=== PATIENT | female | born 1995 | race Caucasian/White ===

== ENCOUNTER 2016-06-25 19:52 | Emergency (ER) | payer OTHER ==
[~2016-06-25] VITALS: Wt 74.5 kg
[~2016-06-25 19:52] MED LIST: AMOX1TAB10 PO; CETI10CA PO; HYDR-906 PO; ONDA8TAB14 PO; PRENAT PO
[2016-06-25] MEDS ORDERED: AMO500 PO (20:58)
[2016-06-25] MEDS ORDERED: IBUP-1542 PO (20:58)
--- NOTE | 2016-08-24 16:20 | ERA ---
ER Documentation Chief Complaint Date/Time DATE: 08/24/16 TIME: 16:17 Chief Complaint sore throat HPI 20-year-old female complaining of pharyngitis. Also complains of a fever. Patient was given medications at this time to resolve the symptoms. No other complaints at this time or associated manifestations. ROS All systems reviewed and are negative except as per history of present illness. Medications Home Meds Active Scripts Ibuprofen* (Motrin*) 600 Mg Tab, 600 MG PO Q6H Y for PAIN AND OR ELEVATED TEMP, #30 TAB Prov:PA BROOKE NP 08/15/16 Ibuprofen* (Motrin*) 600 Mg Tab, 600 MG PO Q8, #30 TAB Prov:BEATA TERRY PA-C 06/25/16 Amoxicillin* (Amoxicillin*) 500 Mg Cap, 500 MG PO TID for 10 Days, CAP Prov:BEATA TERRY PA-C 06/25/16 Amoxicillin/Potassium Clav (Amox-Clav 875-125 mg Tablet) 875-125 mg Tab, 1 TAB PO BID for 7 Days, #14 TAB Prov:VASQUEZ MCDANIEL MD 12/13/15 Ondansetron (Ondansetron Odt) 8 Mg Tab.rapdis, 8 MG PO Q6H Y for NAUSEA AND/OR VOMITING, #10 TAB Prov:VASQUEZ MCDANIEL MD 12/13/15 Hydrocodone/Acetaminophen (Bruno 5-325 Tablet) 1 Each Tablet, 1 TAB PO Q6H Y for PAIN, #15 TAB Prov:VASQUEZ MCDANIEL MD 12/13/15 Cetirizine Hcl* (Zyrtec*) 10 Mg Capsule, 10 MG PO DAILY, #20 TAB.CHEW Prov:VASQUEZ MCDANIEL MD 09/19/15 Multivit/Min/Fol Ac/Iron/Pren* ( S*) 1 Tab Tab, 1 TAB PO DAILY, #120 TAB Prov:TARYN JENSEN NP 03/08/15 Allergies Allergies: Coded Allergies: No Known Drug Allergies (Verified Allergy, Unknown, 08/14/16) PMhx/Soc Medical and Surgical Hx: pt denies Medical Hx, pt denies Surgical Hx Hx Alcohol Use: No Hx Substance Use: No Hx Tobacco Use: No Smoking Status: Never smoker Physical Exam Physical Exam Const: Well-appearing overweight 20-year-old female Head: Atraumatic Eyes: Normal Conjunctiva ENT: Exudates visualized in the oropharynx bilaterally. Normal External Ears , Nose and Mouth. Neck: Anterior cervical lymphadenopathy. Full range of motion..~ No meningismus. Resp: Clear to auscultation bilaterally Cardio: Regular rate and rhythm, no murmurs Abd: Soft, non tender, non distended. Normal bowel sounds Skin: No petechiae or rashes Back: No midline or flank tenderness Ext: No cyanosis, or edema Neur: Awake and alert Psych: Normal Mood and Affect Procedures/MDM Patient is a 4 out of 5 new Cent[facility] criteria. We will go ahead and discharge the patient was with antibiotics for strep pharyngitis. Will be discharged with instructions and return precautions. Departure Diagnosis: Primary Impression: Strep pharyngitis Condition: Stable Patient Instructions: Pharyngitis, Strep (Presumed) Additional Instructions: Return to clinic if rash appears or if symptoms worsen BEATA TERRY PA-C August 24, 2016 16:20
== END 2016-06-25 21:28 | disposition home or self-care (01) ==
LOC: FTE 19:52
DX: J02.9 Acute pharyngitis, unspecified (principal)
CPT/HCPCS: 99283

== ENCOUNTER 2016-08-14 22:24 | Emergency (ER) | payer MEDICAID, OTHER ==
[~2016-08-14] VITALS: Ht 160 cm; Wt 77.5 kg
[~2016-08-14 22:24] MED LIST changes: +AMO500 PO; +IBUP-1542 PO
[2016-08-14 22:51] VITALS: Ht 160 cm; Wt 77.5 kg
[2016-08-15] MEDS ORDERED: IBUP-1542 PO (16:08)
== END 2016-08-15 04:07 | disposition left against medical advice (07) ==
LOC: FTE 22:24
DX: Z53.21 Procedure and treatment not carried out due to patient leaving prior to being seen by health care provider (principal)

== ENCOUNTER 2016-08-15 11:50 | Emergency (ER) | payer OTHER ==
[~2016-08-15] VITALS: Wt 78.0 kg
[2016-08-15] MEDS ORDERED: IBUPROFEN 600 MG TAB PO ONE (14:30)
--- NOTE | 2016-08-15 15:13 | RADRPT ---
PROCEDURE: Retroperitoneal US. CLINICAL INDICATION: Flank pain TECHNIQUE: Multiple sonographic images of the kidneys and retroperitoneum were obtained. The imag es were reviewed on a PACS workstation. COMPARISON: No prior studies are available for comparison. FINDINGS: The kidneys are normal in size, contour, cortical thickness and cortical echogenicity. The right kidney measures 11.5 cm. The left kidney measures 11.1 cm. No kidney stones are visualized. There is no evidence for hydronephrosis. The urinary bladder is decompressed and not well seen. RPTAT: AA IMPRESSION: Unremarkable retroperitoneal ultrasound. .Coleman De Jesus MD, Date Time Electronically viewed and signed by .Coleman De Jesus MD, MD on 08/15/2016 15:13 .S/
[2016-08-15 15:35] LABS: ADD UMIC YES; URINE BILIRUBIN (Dip) NEGATIVE (NEGATIVE); URINE BLOOD (Dip) TRACE (NEGATIVE); URINE COLOR LT. YELLOW (YELLOW); URINE GLUCOSE (Dip) NEGATIVE (NEGATIVE); URINE KETONES (Dip) NEGATIVE (NEGATIVE); URINE LEUKOCYTE ESTERASE (Dip) NEGATIVE (NEGATIVE); URINE NITRITE (Dip) NEGATIVE (NEGATIVE); URINE TOTAL PROTEIN (Dip) NEGATIVE (NEGATIVE); URINE UROBILINOGEN (Dip) 0.2 E.U./dL (0.1-1.0)
[2016-08-15 15:49] LABS: SQUAMOUS EPITHELIAL CELL,UR FEW; URINE RBCS 0-2 /HPF (0)
[2016-08-15] MEDS ORDERED: IBUP-1542 PO (16:08)
[2016-08-15 16:19] VITALS: BP 118/70; PULSE 66; RESP 20; TEMP 98.3
--- NOTE | 2016-08-15 17:49 | ERD ---
ER Documentation Chief Complaint Date/Time DATE: 08/15/16 TIME: 17:43 Chief Complaint RIGHT SIDE NON TRAUMATIC BACK PAIN FOR 3 DAYS. ADARSH. NO VOMITING HPI 20-year-old male complaining of right flank pain 3 days. Patient stated the pain has a sudden onset is sharp and constant. She took Tylenol which help ease the pain for short period. Movement seemed to make pain worse. The pain does not radiate. Denies fever or chills. Denies dysuria. Denies fall, heavy lifting, or injuries. Denies saddle paresthesia. Denies bowel or bladder dysfunctions. ROS All systems reviewed and are negative except as per history of present illness. Medications Home Meds Active Scripts Ibuprofen* (Motrin*) 600 Mg Tab, 600 MG PO Q6H Y for PAIN AND OR ELEVATED TEMP, #30 TAB Prov:PA BROOKE NP 08/15/16 Ibuprofen* (Motrin*) 600 Mg Tab, 600 MG PO Q8, #30 TAB Prov:BEATA TERRY PA-C 06/25/16 Amoxicillin* (Amoxicillin*) 500 Mg Cap, 500 MG PO TID for 10 Days, CAP Prov:BEATA TERRY PA-C 06/25/16 Amoxicillin/Potassium Clav (Amox-Clav 875-125 mg Tablet) 875-125 mg Tab, 1 TAB PO BID for 7 Days, #14 TAB Prov:VASQUEZ MCDANIEL MD 12/13/15 Ondansetron (Ondansetron Odt) 8 Mg Tab.rapdis, 8 MG PO Q6H Y for NAUSEA AND/OR VOMITING, #10 TAB Prov:VAQSUEZ MCDANIEL MD 12/13/15 Hydrocodone/Acetaminophen ([place]iells 5-325 Tablet) 1 Each Tablet, 1 TAB PO Q6H Y for PAIN, #15 TAB Prov:VASQUEZ MCDANIEL MD 12/13/15 Cetirizine Hcl* (Zyrtec*) 10 Mg Capsule, 10 MG PO DAILY, #20 TAB.CHEW Prov:VASQUEZ MCDANIEL MD 09/19/15 Multivit/Min/Fol Ac/Iron/Pren* ( S*) 1 Tab Tab, 1 TAB PO DAILY, #120 TAB Prov:TARYN JENSEN NP 03/08/15 Allergies Allergies: Coded Allergies: No Known Drug Allergies (Verified Allergy, Unknown, 08/14/16) PMhx/Soc Hx Miscellaneous Medical Probl: Yes (hx gallstones, ) Hx Alcohol Use: No Hx Substance Use: No Hx Tobacco Use: No Physical Exam Vitals Vital Signs Date Time Temp Pulse Resp B/P Pulse Ox O2 Delivery O2 Flow Rate FiO2 08/15/16 16:19 98.3 66 20 118/70 97 Room Air 08/15/16 11:54 97.4 75 20 112/75 97 Physical Exam General: Well-developed, well-nourished, conscious and coherent, in no distress Skin: Warm and dry without rash, good texture and turgor Head: Normocephalic without evidence of trauma Eyes: Sclera and conjunctivae normal; pupils equal, round, and reactive to light; extraocular movements are intact Neck: Supple without meningismus or adenopathy. Carotids are equal. Trachea midline. No bruits or JVD Chest: Normal AP diameter. Good expansion without retractions. Nontender. Lungs are clear to auscultate bilaterally with good tidal volume Heart: Regular rate and rhythm. No murmur, rub, or gallops heard Abdomen: Soft and nontender without masses, guarding, or rebound. Bowel sounds are active. No hepatosplenomegaly Back: No midline spine tenderness, right CVA tenderness noted. Pelvis: Nontender to palpation and stable to compression Extremities: Full range of motion. Good strength bilaterally. No clubbing, cyanosis, or edema. Peripheral pulses are intact. Sensation intact Neuro: Alert and oriented 4, GCS 15. Cranial nerves grossly intact. Motor and sensory exams nonfocal. Moves all extremities. Speech clear. Gait normal. No saddle paresthesia. Results 24 hrs Laboratory Tests Test 08/15/16 14:27 Urine Color LT. YELLOW Urine Clarity CLEAR Urine pH 6.0 Urine Specific [place] 1.025 Urine Ketones NEGATIVE Urine Nitrite NEGATIVE Urine Bilirubin NEGATIVE Urine Urobilinogen 0.2 E.U./dL Urine Leukocyte Esterase NEGATIVE Urine Microscopic RBC 0-2/HPF Urine Microscopic WBC 0-2/HPF Urine Squamous Epithelial Cells FEW Urine Hemoglobin TRACE Urine Glucose NEGATIVE% Urine Total Protein NEGATIVE Current Medications Medications (Trade) Dose Ordered Sig/Sherice Route PRN Reason Start Time Stop Time Status Last Admin Dose Admin Ibuprofen (Motrin) 600 mg ONCE ONCE PO 08/15/16 14:30 08/15/16 14:31 DC 08/15/16 14:16 PROCEDURE: Retroperitoneal US. CLINICAL INDICATION: Flank pain TECHNIQUE: Multiple sonographic images of the kidneys and retroperitoneum were obtained. The images were reviewed on a PACS workstation. COMPARISON: No prior studies are available for comparison. FINDINGS: The kidneys are normal in size, contour, cortical thickness and cortical echogenicity. The right kidney measures 11.5 cm. The left kidney measures 11.1 cm. No kidney stones are visualized. There is no evidence for hydronephrosis. The urinary bladder is decompressed and not well seen. RPTAT: AA IMPRESSION: Unremarkable retroperitoneal ultrasound. .Coleman De Jesus MD, MD Date Time Electronically viewed and signed by .Coleman De Jesus MD, on 08/15/2016 15: 13 .S/ CC: PA BROOKE [employer] Procedures/MDM Well-appearing 20-year-old female presented ED with right flank pain 3 days. Ibuprofen given to the patient in the ED for pain. Patient reports improvement of pain after ibuprofen. UA showed trace hemoglobin, otherwise negative. Patient does not have a UTI or pyelonephritis, however I suspect urolithiasis. Renal ultrasound is negative for hydronephrosis. I doubt spinal fracture, subluxation, disc herniation, spinal epidural abscess, or cauda equina syndrome. Patient appears well, stable for discharge and outpatient management. Medical decision making shared with patient and family. Education provided to patient and family. Patient and family expressed understanding of the plan. Medications on discharge: Ibuprofen. Follow-up: Primary care provider in 2-3 days or return to ED if worse. Departure Diagnosis: Primary Impression: Flank pain Condition: Good Patient Instructions: Kidney Stone W/ Colic Referrals: COMMUNITY CLINICS YOU HAVE RECEIVED A MEDICAL SCREENING EXAM AND THE RESULTS INDICATE THAT YOU DO NOT HAVE A CONDITION THAT REQUIRES URGENT TREATMENT IN THE EMERGENCY DEPARTMENT. FURTHER EVALUATION AND TREATMENT OF YOUR CONDITION CAN WAIT UNTIL YOU ARE SEEN IN YOUR DOCTORS OFFICE WITHIN THE NEXT 1-2 DAYS. IT IS YOUR RESPONSIBILITY TO MAKE AN APPOINTMENT FOR FOLOW-UP CARE. IF YOU HAVE A PRIMARY DOCTOR --you should call your primary doctor and schedule an appointment IF YOU DO NOT HAVE A PRIMARY DOCTOR YOU CAN CALL OUR PHYSICIAN REFERRAL HOTLINE AT IF YOU CAN NOT AFFORD TO SEE A PHYSICIAN YOU CAN CHOSE FROM THE FOLLOWING [facility] [address] [facility]. [facility] [address] [facility] [facility] [address] [facility] [address] [facility]. [facility] [address] [facility]. [facility] [address] Additional Instructions: Call your primary care doctor TOMORROW for an appointment during the next 2-3 days.See the doctor sooner or return here if your condition worsens before your appointment time. PA BROOKE NP August 15, 2016 17:49
== END 2016-08-15 16:20 | disposition home or self-care (01) ==
LOC: FTE 11:50
DX: R10.9 Unspecified abdominal pain (principal)
CPT/HCPCS: 76775; 81001; Z7502; Z7610; 81003

== ENCOUNTER 2016-08-27 19:58 | Inpatient (IN) | payer OTHER ==
[~2016-08-27] VITALS: Ht 160 cm; Wt 77.5 kg
[2016-08-27] MEDS ORDERED: ONDANSETRON (ODT) 4 MG TAB ODT STA (22:19)
[2016-08-27] MEDS ORDERED: IBUPROFEN 600 MG TAB PO ONE (22:30)
[2016-08-27 22:38] LABS: URINE BLOOD (Dip) POC Negative (NEGATIVE)
[2016-08-27 23:04] LABS: ADD SCAN DIFF NO
[2016-08-27 23:07] LABS: BASOPHILS % 0.2 % (0.0-2.0); EOSINOPHILS % 0.1 % (0.0-7.0); HEMATOCRIT 40.7 % (37.0-47.0); HEMOGLOBIN 13.5 g/dl (12.0-16.0); LYMPHOCYTES # 2.8 10^3/ul (0.8-2.9); LYMPHOCYTES % 14.5 % (15.0-51.0); MEAN CORPUSCULAR HEMOGLOBIN 27.9 pg (29.0-33.0); MEAN CORPUSCULAR HGB CONC 33.2 g/dl (32.0-37.0); MEAN CORPUSCULAR VOLUME 84.1 fl (82.0-101.0); MEAN PLATELET VOLUME 10.2 fl (7.4-10.4); MONOCYTE # 0.8 10^3/ul (0.3-0.9); NEUTROPHIL # 15.6 10^3/ul (1.6-7.5); NEUTROPHILS % 80.9 % (39.0-77.0); PLATELET COUNT 309 10^3/UL (140-415); RED BLOOD COUNT 4.84 10^6/ul (4.20-5.40); RED CELL DISTRIBUTION WIDTH 13.2 % (11.5-14.5); WHITE BLOOD COUNT 19.2 10^3/ul (4.8-10.8)
[2016-08-27 23:21] LABS: ALBUMIN 4.8 g/dl (3.3-4.9)
[2016-08-27 23:22] LABS: POTASSIUM 3.8 mmol/L (3.5-5.1)
[2016-08-27 23:24] LABS: ALBUMIN/GLOBULIN RATIO 1.26; BILIRUBIN,INDIRECT 0.5 mg/dl (0-1.1); BILIRUBIN,TOTAL 0.5 mg/dl (0.2-1.3); CREATININE 0.49 mg/dl (0.44-1.00); TOTAL PROTEIN 8.6 g/dl (6.1-8.1)
[2016-08-27 23:25] LABS: CALCIUM 9.5 mg/dl (8.4-10.2)
--- NOTE | 2016-08-27 23:28 | RADRPT ---
PROCEDURE: US Abdomen (right upper quadrant). CLINICAL INDICATION: Pain. TECHNIQUE: Multiple real-time longitudinal and transverse images of the right upper quadrant of th e abdomen were acquired utilizing a curved array transducer. Images were reviewed on a high-resoluti on PACS workstation. COMPARISON: 12/13/2015 FINDINGS: The liver is normal in size and echogencity without focal mass. Multiple gallstones are noted withi n the gallbladder. There is no pericholecystic fluid or gallbladder wall thickening. There is no s onographic Mcwilliams's sign. No intra or extrahepatic biliary dilatation is seen. The common bile elaine t measures 4.5 mm in maximal dimension. The pancreas is unremarkable. No free fluid is identified. The right kidney measures 10.8 cm in length. Right kidney is normal in size and echogenicity withou t hydronephrosis, mass or calculus. There is no perinephric fluid collection. IMPRESSION: 1. Cholelithiasis. 2. No biliary ductal dilation or other signs of cholecystitis. RPTAT: HMVK .Berlin Mehta MD, MD Date Time Electronically viewed and signed by .Berlin Mehta MD, MD on 08/27/2016 23:28 .K/
[2016-08-28] MEDS ORDERED: morphine 4 MG/ML VIAL IV STA (00:26)
--- NOTE | 2016-08-28 00:35 | ERA ---
ER Documentation Chief Complaint Date/Time DATE: 08/28/16 TIME: 00:27 Chief Complaint Epigastric with N/V and diarrhea HPI This is a 20-year-old female with past medical history for cholelithiasis and nephrolithiasis presenting to emergency department for epigastric and right upper quadrant abdominal pain with nausea, vomiting and diarrhea 2 days. Patient has had 2 episodes of nonbloody nonbilious emesis yesterday with multiple episodes of loose stool today. No black, tarry or bloody stools. Patient states pain does not radiate. Patient states she was diagnosed with gallstones 1 year ago. Patient states pain feels similar but much worse today. No fevers or chills. No chest pain, shortness of breath or difficulty breathing. No back or flank pain. No dysuria, hematuria, urinary frequency or urinary urgency. ROS All systems reviewed and are negative except as per history of present illness. Medications Home Meds Active Scripts Ibuprofen* (Motrin*) 600 Mg Tab, 600 MG PO Q6H Y for PAIN AND OR ELEVATED TEMP, #30 TAB Prov:PA BROOKE NP 08/15/16 Ibuprofen* (Motrin*) 600 Mg Tab, 600 MG PO Q8, #30 TAB Prov:BEATA TERRY PA-C 06/25/16 Amoxicillin* (Amoxicillin*) 500 Mg Cap, 500 MG PO TID for 10 Days, CAP Prov:BEATA TERRY PA-C 06/25/16 Amoxicillin/Potassium Clav (Amox-Clav 875-125 mg Tablet) 875-125 mg Tab, 1 TAB PO BID for 7 Days, #14 TAB Prov:VASQUEZ MCDANIEL MD 12/13/15 Ondansetron (Ondansetron Odt) 8 Mg Tab.rapdis, 8 MG PO Q6H Y for NAUSEA AND/OR VOMITING, #10 TAB Prov:VASQUEZ MCDANIEL MD 12/13/15 Hydrocodone/Acetaminophen ([place] 5-325 Tablet) 1 Each Tablet, 1 TAB PO Q6H Y for PAIN, #15 TAB Prov:VASQUEZ MCDANIEL MD 12/13/15 Cetirizine Hcl* (Zyrtec*) 10 Mg Capsule, 10 MG PO DAILY, #20 TAB.CHEW Prov:VASQUEZ MCDANIEL MD 09/19/15 Multivit/Min/Fol Ac/Iron/Pren* ( S*) 1 Tab Tab, 1 TAB PO DAILY, #120 TAB Prov:LUIS ETARYN LACKEY NP 03/08/15 Allergies Allergies: Coded Allergies: No Known Drug Allergies (Verified Allergy, Unknown, 08/14/16) PMhx/Soc Cholelithiasis Nephrolithiasis History of Surgery: No Anesthesia Reaction: No Hx Neurological Disorder: No Hx Respiratory Disorders: No Hx Cardiac Disorders: No Hx Psychiatric Problems: No Hx Miscellaneous Medical Probl: Yes (hx gallstones, HX OF KIDNEY STONES.) Hx Alcohol Use: No Hx Substance Use: No Hx Tobacco Use: No Smoking Status: Never smoker Physical Exam Vitals Vital Signs Date Time Temp Pulse Resp B/P Pulse Ox O2 Delivery O2 Flow Rate FiO2 08/27/16 20:11 98.6 86 20 126/78 100 Physical Exam Const: No acute distress, alert Head: Atraumatic Eyes: Normal Conjunctiva ENT: Normal External Ears, Nose and Mouth. Neck: Full range of motion..~ No meningismus. Resp: Clear to auscultation bilaterally Cardio: Regular rate and rhythm, no murmurs Abd: Soft, non distended. Normal bowel sounds, negative Mcwilliams sign. Tenderness to palpation of epigastric region. Negative McBurney's point tenderness, negative rebound tenderness no guarding or masses noted Skin: No petechiae or rashes Back: No midline or flank tenderness Ext: No cyanosis, or edema Neur: Awake and alert Psych: Normal Mood and Affect Result Diagram: 08/27/16224508/27/162245 Results 24 hrs Laboratory Tests Test 08/27/16 22:41 08/27/16 22:46 Bedside Urine pH (LAB) 5.5 Bedside Urine Protein (LAB) Negative Bedside Urine Glucose (UA) Negative Bedside Urine Ketones (LAB) Negative Bedside Urine Blood Negative Bedside Urine Nitrite (LAB) Negative Bedside Urine Leukocyte Esterase (L Negative White Blood Count 19.210^3/ul Red Blood Count 4.8410^6/ul Hemoglobin 13.5g/dl Hematocrit 40.7% Mean Corpuscular Volume 84.1fl Mean Corpuscular Hemoglobin 27.9pg Mean Corpuscular Hemoglobin Concent 33.2g/dl Red Cell Distribution Width 13.2% Platelet Count 65069^3/UL Mean Platelet Volume 10.2fl Neutrophils % 80.9% Lymphocytes % 14.5% Monocytes % 4.0% Eosinophils % 0.1% Basophils % 0.2% Nucleated Red Blood Cells % 0.0/100WBC Neutrophils # 15.610^3/ul Lymphocytes # 2.810^3/ul Monocytes # 0.810^3/ul Eosinophils # 0.010^3/ul Basophils # 0.010^3/ul Nucleated Red Blood Cells # 0.010^3/ul Sodium Level 141mmol/L Potassium Level 3.8mmol/L Chloride Level 101mmol/L Carbon Dioxide Level 27mmol/L Anion Gap 17 Blood Urea Nitrogen 11mg/dl Creatinine 0.49mg/dl Glucose Level 103mg/dl Calcium Level 9.5mg/dl Total Bilirubin 0.5mg/dl Direct Bilirubin 0.00mg/dl Indirect Bilirubin 0.5mg/dl Aspartate Amino Transf (AST/SGOT) 260IU/L Alanine Aminotransferase (ALT/SGPT) 131IU/L Alkaline Phosphatase 122IU/L Total Protein 8.6g/dl Albumin 4.8g/dl Globulin 3.80g/dl Albumin/Globulin Ratio 1.26 Lipase 18U/L Current Medications Medications (Trade) Dose Ordered Sig/Sherice Route PRN Reason Start Time Stop Time Status Last Admin Dose Admin Ibuprofen (Motrin) 600 mg ONCE ONCE PO 08/27/16 22:30 08/27/16 22:31 DC 08/27/16 22:40 Ondansetron HCl (Zofran Odt) 4 mg ONCE STAT ODT 08/27/16 22:19 08/27/16 22:22 DC 08/27/16 22:40 Morphine Sulfate 4 mg 4 mg ONCE STAT IV 08/28/16 00:26 08/28/16 00:27 DC Dextrose/Sodium Chloride (D5-1/2ns) 1,000 ml @ 120 mls/hr Q8H20M IV 08/28/16 01:12 UNV IV Flush (NS 3 ml) 3 ml PER PROTOCOL IV 08/28/16 01:30 UNV Ondansetron HCl (Zofran Inj) 4 mg Q6H PRN IV NAUSEA AND/OR VOMITING 08/28/16 01:30 UNV Morphine Sulfate 4 mg 4 mg Q4H PRN IV PAIN 08/28/16 01:30 UNV Ampicillin Sodium/ Sulbactam Sodium (Unasyn 3gm/NS (Pmx)) 100 ml @ 100 mls/hr Q6H IVPB 08/28/16 01:30 UNV Procedures/MDM Patient: TERRIE KOVACS : 1995 Age: 20 Sex: F MR #: [id number] DOS: 08/27/16 2219 Ordering MD: EDWIN MONTEIRO NP Location: [facility] Room/Bed: PROCEDURE: US Abdomen (right upper quadrant). CLINICAL INDICATION: Pain. TECHNIQUE: Multiple real-time longitudinal and transverse images of the right upper quadrant of the abdomen were acquired utilizing a curved array transducer. Images were reviewed on a high-resolution PACS workstation. COMPARISON: 12/13/2015 FINDINGS: The liver is normal in size and echogencity without focal mass. Multiple gallstones are noted within the gallbladder. There is no pericholecystic fluid or gallbladder wall thickening. There is no sonographic Mcwilliams's sign. No intra or extrahepatic biliary dilatation is seen. The common bile duct measures 4.5 mm in maximal dimension. The pancreas is unremarkable. No free fluid is identified. The right kidney measures 10.8 cm in length. Right kidney is normal in size and echogenicity without hydronephrosis, mass or calculus. There is no perinephric fluid collection. IMPRESSION: 1. Cholelithiasis. 2. No biliary ductal dilation or other signs of cholecystitis. MDM; 20-year-old female presents emergency department for epigastric and right upper quadrant abdominal pain with nausea, vomiting and diarrhea 2 days. No active vomiting or diarrhea while in the ED. Patient has history of gallstones. Ultrasound reviewed by radiologist as cholelithiasis. No biliary ductal dilation or other signs of cholecystitis. Patient given ibuprofen and Zofran while in the ED. Upon reassessment, patient states pain is still 7-8/10 to epigastric and right upper quadrant area. Labs show elevated WBC, AST and ALT. WBC 19.2, AST 260, ALT 131, alk phosphatase 122. Consulted Dr. Lizama and we agree that patient is appropriate for admission to hospital and higher level of care. IV access obtained and patient given morphine 4mg IV push. Patient will be transferred to ER1 for eventual admission to the hospital. Differential diagnosis includes but not limited to acute cholangitis, acute cholecystitis, choledocholithiasis, hepatitis or pancreatitis. Departure Diagnosis: Primary Impression: Abdominal pain Qualified Code: R10.13 - Epigastric pain Additional Impression: Cholelithiasis Condition: EDWIN Middleton NP August 28, 2016 00:35
[2016-08-28] MEDS ORDERED: NACL 0.9% 3 ML SYG IV SCH (01:30)
[2016-08-28] MEDS ORDERED: ONDANSETRON 4 MG INJ IV PRN (01:30)
[2016-08-28] MEDS ORDERED: morphine 2 MG INJ IV PRN (01:30)
[2016-08-28] MEDS: DEXTROSE 5%-0.45% NACL 1,000 ML IV SCH ×4 (02:32→22:31)
[2016-08-28 02:40] VITALS: TEMP 99
[2016-08-28 03:10] VITALS: Ht 160 cm; Wt 77.5 kg
[2016-08-28 03:38] VITALS: BP 108/77; RESP 18
[2016-08-28 05:04] LABS: ADD SCAN DIFF NO
[2016-08-28 05:08] LABS: BASOPHILS % 0.2 % (0.0-2.0); EOSINOPHILS % 0.4 % (0.0-7.0); HEMATOCRIT 37.5 % (37.0-47.0); HEMOGLOBIN 12.5 g/dl (12.0-16.0); LYMPHOCYTES # 3.6 10^3/ul (0.8-2.9); LYMPHOCYTES % 32.9 % (15.0-51.0); MEAN CORPUSCULAR HGB CONC 33.3 g/dl (32.0-37.0); MEAN CORPUSCULAR VOLUME 83.9 fl (82.0-101.0); MEAN PLATELET VOLUME 10.4 fl (7.4-10.4); MONOCYTE # 0.7 10^3/ul (0.3-0.9); NEUTROPHIL # 6.5 10^3/ul (1.6-7.5); NEUTROPHILS % 60.3 % (39.0-77.0); PLATELET COUNT 275 10^3/UL (140-415); RED BLOOD COUNT 4.47 10^6/ul (4.20-5.40); RED CELL DISTRIBUTION WIDTH 13.2 % (11.5-14.5); WHITE BLOOD COUNT 10.8 10^3/ul (4.8-10.8)
[2016-08-28] MEDS: AMPICILLIN/SULB 3 GM/NS (PMX) 100 ML IVPB SCH ×4 (05:25→23:55)
[2016-08-28 05:28] LABS: ALBUMIN/GLOBULIN RATIO 1.17; BILIRUBIN,INDIRECT 0.9 mg/dl (0-1.1); BILIRUBIN,TOTAL 0.9 mg/dl (0.2-1.3); CREATININE 0.47 mg/dl (0.44-1.00); MAGNESIUM 1.9 mg/dl (1.7-2.5); PHOSPHORUS 3.5 mg/dl (2.5-4.9); POTASSIUM 3.7 mmol/L (3.5-5.1); TOTAL PROTEIN 7.4 g/dl (6.1-8.1)
--- NOTE | 2016-08-28 06:38 | HP ---
DATE OF ADMISSION: 08/28/2016 TIME SEEN: 3 a.m. CHIEF COMPLAINT: Abdominal pain, nausea, vomiting and diarrhea. HISTORY OF PRESENT ILLNESS: The patient is a 20-year-old female with a history of cholelithiasis a nd kidney stones who presented to the emergency department with the above stated chief complaint. H er symptoms have been going on for almost 3 days now. Her abdominal pain is diffuse, but mainly loc ated in the right upper quadrant and epigastric area with associated vomiting, which was nonbilious, nonbloody. Also, reported diarrhea for 2 days described as nonwatery with loose stool. She denied dark stool or bright red blood per rectum. She presented to the ER, vitals were stable. Labs show WBC of 19,000 with abnormal liver enzymes wi th a AST of 260, ALT 131, alkaline phosphatase 122. Her lipase was normal at 18. Right upper quadr ant ultrasound shows cholelithiasis with no biliary ductal dilatation or other signs of cholecystiti s. She was given pain medication and Zofran and admitted for further evaluation. Dr. Benoit, the o n-call surgeon is made aware by the ER physician. REVIEW OF SYSTEMS: A 12-point review of systems was performed and negative except as mentioned in H PI. PAST MEDICAL HISTORY: Cholelithiasis diagnosed over a year ago. PAST SURGICAL HISTORY: Denies. SOCIAL HISTORY: Denied a history of tobacco, alcohol or illicit drug use. ALLERGIES: NO KNOWN DRUG ALLERGIES. HOME MEDICATIONS: 1. Ibuprofen. 2. Multivitamin. PHYSICAL EXAMINATION: VITAL SIGNS: Stable. GENERAL: No acute distress. She is answering questions appropriately and able to speak in full sen tences. HEENT: No obvious head deformity. Pupils are reactive to light. Extraocular muscles intact. CARDIOVASCULAR: Regular rate and rhythm with no extra sounds. LUNGS: Clear. ABDOMEN: Soft. There is tenderness diffusely, but mainly in the epigastric and right upper quadran t area. There was no guarding, no rigidity, no rebound tenderness. EXTREMITIES: No edema. NEUROLOGIC: No focal deficit. LABORATORY: Pertinent positives as mentioned in the HPI. IMAGING: Right upper quadrant ultrasound shows cholelithiasis. IMPRESSION: 1. Probable choledocholithiasis with probable underlying cholecystitis. 2. Abdominal pain, secondary to above. 3. Abnormal liver enzymes, likely secondary to choledocholithiasis. PLAN: We will keep n.p.o. with IV fluid. We will provide pain medication and antiemetics as needed . She will be placed on antibiotic. We will obtain MRCP for further evaluation. We will place a G I consult. She is currently awaiting surgical evaluation. If her diarrhea recurs we will send stoo l for culture as well as C. diff. Further workup and management will be per clinical course. Dictated By: ANSELMO FIELDS/REX Conf#: [id number] DID#: [id number]
[2016-08-28 10:55] VITALS: BP 104/67; RESP 20
--- NOTE | 2016-08-28 15:29 | CONS ---
[facility] INITIAL INPATIENT CONSULTATION NOTE DATE OF CONSULTATION: 08/28/2016 PLACE OF SERVICE: [facility], 4th floor. ASSESSMENT AND PLAN: A very pleasant 20-year-old young lady with essentially only comorbid issue of body mass index 30.3 as well as history of cholelithiasis and renal stones, recently status post-delivery of her child about 2 years ago, presenting with a clinical picture that could be consistent with biliary colic, although more likely due to viral gastroenteritis given the 3 day history as well as the diarrhea. The patient's MRCP is still pending and there are some indications of elevation in transaminases. No evidence of pancreatitis. She can certainly benefit from in-house care as well as careful evaluation and if her workup shows cholecystic duct she may be benefited by laparoscopic cholecystectomy. Alternatively, this could be a viral infection which would get better with supportive care. She may still need an elective laparoscopic cholecystectomy in the near future and will certainly make that determination as further information becomes available. I explained all of this to the patient and her family and answered all their questions to the best of my ability. I believe that they understood and wished to proceed. With above assessment, I have recommend the followin. Follow up on MRCP results. 2. Consideration for HIDA scan. 3. Treat symptoms. 4. Intravenous fluids. 5. Check labs in a.m. 6. Possible laparoscopic cholecystectomy if the above workup focuses the diagnosis on the gallbladder. Thank you again for allowing us to participate in the care of this very pleasant lady and her wonderful family. If there are any questions, please feel free to contact me at [phone]. UPDATED CLINICAL SUMMARY: The patient is a very pleasant 20-year-old young lady with a few comorbidities including BMI of 30.3, presenting to the emergency department and being admitted at [facility] on 08/28 with abdominal pain, possibly due to cholelithiasis versus viral gastroenteritis. COMORBIDITIES: 1. BMI of 30.3. 2. Known history of cholelithiasis discovered during . 3. History of kidney stones. 4. G1, P1, A0 status with her child approximately 2 years old. DATE OF ADMISSION: 08/28/2016 HISTORY OF PRESENT ILLNESS: The patient is a very pleasant 20-year-old young lady with above-mentioned comorbidities, whom we were kindly asked to consult regarding management of possible biliary disease. She reported having abdominal symptoms for the last 3 days associated with nausea and some vomiting. The pain is diffuse, but somewhat localized to the upper quadrants and epigastric area. She does not report any blood in her emesis. She did have diarrhea for 2 days, described as non-watery with loose stool. No blood in the stool or urine. She remembers having similar attack while she was at which time she was told she has cholelithiasis. She has never been evaluated for a cholecystectomy before. Note that the patient's initial white blood cell count of 19,000 quickly normalized after a few hours of resuscitation. She also has elevated AST and ALT and alkaline phosphatase which was marginal at 122. Lipase was 18. Her workup included images that were from gallbladder ultrasound showing cholelithiasis but no biliary ductal dilatation or other signs of cholecystitis. An MRCP is pending. No other major complaints during my visit. ALLERGIES: NO KNOWN DRUG ALLERGIES. HOME MEDICATIONS: 1. Multivitamins. 2. Ondansetron. 3. Motrin. 4. Clearwater. 5. Zyrtec. 6. Amoxicillin and clavulanic acid. SOCIAL HISTORY: The patient lives with her family and does not report any smoking, drinking, or intravenous drug use. FAMILY HISTORY: No mention of major medical, surgical or oncologic problems in the family. REVIEW OF SYSTEMS: Other than the above-mentioned, there are no other pertinent positives or pertinent negatives in a complete 14-point review of systems. PHYSICAL EXAMINATION: GENERAL: The patient appears to be a very pleasant lady of descent, appearing stated age, lying in bed comfortably and in no acute distress. BMI is 30.3. VITAL SIGNS: Include temperature 98.4, blood pressure 104/67, pulse 72, respiratory rate 20, pulse oximetry 98% on room air. HEENT: Normocephalic and atraumatic. Extraocular muscles and hearing are grossly intact bilaterally and symmetrically. Sclerae are nonicteric. Oral cavity is clear; oral mucosa appeared to be pink and moist. Dentition: good. NECK: Supple. There is no lymphadenopathy or JVD. There is no submental, submandibular or supraclavicular lymphadenopathy. CHEST: Rises symmetrically with each breath; patient is breathing comfortably. There are no audible wheezes, rales or rhonchi on the gross exam. HEART: Pulse is regular and palpable on the right wrist. Capillary refill was normal. Carotid pulses are palpable bilaterally and symmetrically in the neck. EXTREMITIES: Lower extremities contain no pitting edema around the ankles bilaterally and symmetrically. ABDOMEN: Abdomen is soft, nontender and nondistended. There are no peritoneal signs or guarding. No evidence of ascites, organomegaly, caput medusae, engorged subcutaneous veins, or other abnormalities. SKIN: Appears to be pink and feels warm to touch. NEUROLOGIC: Awake, alert, and follows commands appropriately. LABORATORY VALUES: As above. IMAGING: As above. Note that I personally reviewed all the available and pertinent images and I agree in general with their overall reported findings. Dictated By: MARY ESCUDERO/REX Conf#: [id number] DID#: [id number]
--- NOTE | 2016-08-28 16:31 | CONS ---
Date/Time of Note Date/Time of Note DATE: 08/28/16 TIME: 16:19 Assessment/Plan Assessment/Plan Additional Assessment/Plan Assessment * Abdominal pain Ultrasound of abdomen Cholelithiasis. . No biliary ductal dilation or other signs of cholecystitis. * Elevated transaminases R/O choledocholithiasis vs hepatocellular Plan * await MRCP result * continue present management * pain control Consultation Date/Type/Reason Admit Date/Time August 28, 2016 at 01:03 Date of Consultation: August 28, 2016 Type of Consultation: gastroenterology Reason for Consultation cholecystitis/elevated transaminases Referring Provider: ANSELMO STINSON MD Hx of Present Illness 20 year old female with past medical history of cholelithiasis during came to emergency room complaining of epigastric pain .Present condition started 1 day as sharp non radiating epigastric pain with associated nausea, vomiting and 2 episodes of loose bowel movements.Patient denies fever,chest pain ,hematemesis,nor hematochezia. Emergency room course ultrasound 08/27/2016 Cholelithiasis. . No biliary ductal dilation or other signs of cholecystitis. Laboratory examination revealed leukocytosis 19.2.,AST 260,[id number],alkaline phosphatase 122.Presently patient denies any abdominal pain and just came back from MRI Constitutional: improved, no complaints Eyes: no complaints ENT: no complaints Respiratory: no complaints Cardiovascular: no complaints Gastrointestinal: flatus, nausea, pain Genitourinary: no complaints Musculoskeletal: no complaints Skin: no complaints Neurologic: no complaints Endocrine: no complaints Lymphatic: no complaints Psychological: nl mood/affect, no complaints Immunologic: no complaints Past Medical History Medical History: no pertinent history Past Surgical History Past Surgical Hx: no surgical history Family History Significant Family History: no pertinent family hx Social History Smoking Status: Never smoker Exam/Review of Systems Vital Signs Vitals Vital Signs Date Time Temp Pulse Resp B/P Pulse Ox O2 Delivery O2 Flow Rate FiO2 08/28/16 10:55 98.4 72 20 104/67 98 08/28/16 02:40 Room Air Intake and Output 08/27/16 08/27/16 08/28/16 15:00 23:00 07:00 Intake Total 340 ml Balance 340 ml Exam Constitutional: alert, oriented, well developed Psych: nl mood/affect Head: atraumatic, normocephalic Eyes: PERRL, nl conjunctiva, nl sclera Neck: non-tender, supple Respiratory: clear to auscultation, normal air movement Cardiovascular: nl pulses, regular rate and rhythm Gastrointestinal: nl liver, spleen, non-tender, soft Musculoskeletal: nl extremities to inspection, nl gait and stance Extremities: normal pulses Neurological: DATABASE MANAGEMENT SPECIALIST II-XII intact, nl mental status, nl speech, nl strength Skin: nl turgor, No rash or lesions Lymph: nl lymph nodes Results Result Diagram: 08/28/1643908/28/16439 Results 24 hrs Laboratory Tests Test 08/27/16 22:41 08/27/16 22:46 08/28/16 04:40 Bedside Urine pH (LAB) 5.5 Bedside Urine Protein (LAB) Negative Bedside Urine Glucose (UA) Negative Bedside Urine Ketones (LAB) Negative Bedside Urine Blood Negative Bedside Urine Nitrite (LAB) Negative Bedside Urine Leukocyte Esterase (L Negative White Blood Count 19.2 #H 10.8 # Red Blood Count 4.84 4.47 Hemoglobin 13.5 12.5 Hematocrit 40.7 37.5 Mean Corpuscular Volume 84.1 83.9 Mean Corpuscular Hemoglobin 27.9 L 28.0 L Mean Corpuscular Hemoglobin Concent 33.2 33.3 Red Cell Distribution Width 13.2 13.2 Platelet Count 309 275 Mean Platelet Volume 10.2 # 10.4 Neutrophils % 80.9 H 60.3 Lymphocytes % 14.5 L 32.9 Monocytes % 4.0 6.0 Eosinophils % 0.1 0.4 Basophils % 0.2 0.2 Nucleated Red Blood Cells % 0.0 0.0 Neutrophils # 15.6 H 6.5 Lymphocytes # 2.8 3.6 H Monocytes # 0.8 0.7 Eosinophils # 0.0 0.0 Basophils # 0.0 0.0 Nucleated Red Blood Cells # 0.0 0.0 Sodium Level 141 139 Potassium Level 3.8 3.7 Chloride Level 101 105 Carbon Dioxide Level 27 27 Anion Gap 17 H 11 Blood Urea Nitrogen 11 8 Creatinine 0.49 0.47 Glucose Level 103 133 Calcium Level 9.5 9.0 Total Bilirubin 0.5 0.9 Direct Bilirubin 0.00 0.00 Indirect Bilirubin 0.5 0.9 Aspartate Amino Transf (AST/SGOT) 260 H 668 H Alanine Aminotransferase (ALT/SGPT) 131 H 411 H Alkaline Phosphatase 122 H 112 Total Protein 8.6 H 7.4 # Albumin 4.8 4.0 Globulin 3.80 H 3.40 H Albumin/Globulin Ratio 1.26 1.17 Lipase 18 L Phosphorus Level 3.5 Magnesium Level 1.9 Medications Medications Current Medications Dextrose/Sodium Chloride (D5-1/2ns) 1,000 ml @ 120 mls/hr Q8H20M IV Last administered on 08/28/16 10:40; Admin Dose 120 MLS/HR; Start 08/28/16 at 01:12 Ondansetron HCl (Zofran Inj) 4 mg Q6H PRN IV NAUSEA AND/OR VOMITING Last administered on 08/28/16 02:38; Admin Dose 4 MG; Start 08/28/16 at 01:30 Morphine Sulfate 4 mg 4 mg Q4H PRN IV PAIN Last administered on 08/28/16 10:44 ; Admin Dose 4 MG; Start 08/28/16 at 01:30 Ampicillin Sodium/ Sulbactam Sodium (Unasyn 3gm/NS (Pmx)) 100 ml @ 100 mls/hr Q6 IVPB Last administered on 08/28/16 12:34; Admin Dose 100 MLS/HR; Start at 06:00 TRICIA GERMAN MD August 28, 2016 16:31
[2016-08-28] MEDS: morphine 2 MG INJ IV PRN (17:25)
[2016-08-28 21:31] VITALS: BP 101/69; RESP 18
[2016-08-29 05:49] LABS: ADD SCAN DIFF NO
[2016-08-29 05:59] LABS: BASOPHILS % 0.3 % (0.0-2.0); EOSINOPHILS # 0.2 10^3/ul (0.0-0.5); EOSINOPHILS % 2.2 % (0.0-7.0); HEMATOCRIT 36.8 % (37.0-47.0); HEMOGLOBIN 12.3 g/dl (12.0-16.0); LYMPHOCYTES % 38.9 % (15.0-51.0); MEAN CORPUSCULAR HEMOGLOBIN 28.5 pg (29.0-33.0); MEAN CORPUSCULAR HGB CONC 33.4 g/dl (32.0-37.0); MEAN CORPUSCULAR VOLUME 85.2 fl (82.0-101.0); MEAN PLATELET VOLUME 10.6 fl (7.4-10.4); MONOCYTE # 0.4 10^3/ul (0.3-0.9); MONOCYTES % 5.5 % (0.0-11.0); NEUTROPHILS % 52.8 % (39.0-77.0); PLATELET COUNT 271 10^3/UL (140-415); RED BLOOD COUNT 4.32 10^6/ul (4.20-5.40); RED CELL DISTRIBUTION WIDTH 13.2 % (11.5-14.5); WHITE BLOOD COUNT 7.6 10^3/ul (4.8-10.8)
[2016-08-29 06:10] LABS: CALCIUM 8.7 mg/dl (8.4-10.2); CREATININE 0.53 mg/dl (0.44-1.00); MAGNESIUM 2.1 mg/dl (1.7-2.5); POTASSIUM 3.9 mmol/L (3.5-5.1)
[2016-08-29] MEDS: AMPICILLIN/SULB 3 GM/NS (PMX) 100 ML IVPB SCH ×3 (06:45→18:43)
--- NOTE | 2016-08-29 07:28 | RADRPT ---
PROCEDURE: MRI abdomen without contrast; MRCP CLINICAL INDICATION: abdominal pain TECHNIQUE: Multiplanar, multisequence imaging of the abdomen was obtained without contrast. Imagi ng includes axial and coronal T2 and T2 fat-saturated images. In addition, a dedicated high T2 signal intensity MRCP images were obtained in multiple planes with 3-D reconstructions. COMPARISON: Ultrasound 08/27/2016 FINDINGS: MRCP: The gallbladder is dilated with numerous layering gallstones. There is gallbladder wall thickening seen with trace pericholecystic fat stranding and fluid consistent with inflammation. There is mild intrahepatic biliary ductal enlargement and mild extrahepatic biliary ductal enlargeme nt of the common duct measures approximately 8 mm. No discrete measurable stone is seen in the comm on duct however there is some low signal seen along the dependent portion of the duct. MRI abdomen: There is uniform signal intensity of the liver without evidence of mass. There is a flow void seen within the portal vein without gross evidence for portal vein thrombus. The kidneys are symmetric without hydronephrosis or mass. The adrenal glands are within normal limi ts. The pancreas is uniform without surrounding inflammation. There is no evidence of bowel obstruction or inflammatory changes of the mesentery. The aorta is un remarkable. There are no enlarged lymph nodes. There is no acute osseous abnormality. IMPRESSION: Cholelithiasis is present with findings suggestive for acute cholecystitis. Although a discrete measurable stone is not visible on MRCP, the presence of mild intrahepatic and e xtrahepatic biliary ductal enlargement and low signal along the dependent portion of the common duct is suggestive of the presence of intraductal stones which can be better assessed with ERCP. RPTAT: AA .Teressa Ramos MD, MD Date Time Electronically viewed and signed by .Teressa Ramos MD, MD on 08/29/2016 07:28 .J/
[2016-08-29 07:37] LABS: ALBUMIN 3.6 g/dl (3.3-4.9); BILIRUBIN,DIRECT 0.3 mg/dl (0.00-0.20); BILIRUBIN,INDIRECT 1.5 mg/dl (0-1.1); BILIRUBIN,TOTAL 1.8 mg/dl (0.2-1.3); TOTAL PROTEIN 6.9 g/dl (6.1-8.1)
--- NOTE | 2016-08-29 07:55 | PN ---
Date/Time of Note Date/Time of Note DATE: 08/29/16 TIME: 07:43 Assessment/Plan Lines/Catheters IV Catheter Type (from [facility]): Peripheral IV Xiao in Place (from [facility]): No Assessment/Plan Assessment/Plan [facility] Progress Note Date of Service: 08/29/16 Today's Impression & Plan: Overall stable and seems improved. Abd benign. MRCP 08/28/16 does not seem to suggest choledocholithiasis and gallbladder appears distended but not obvious evidence of acute cholecystitis (final report still pending). Appreciate Dr. Modi's input. Given improvement, may be able to d/c patient home with plans for outpatient lap gt. Alternatively, could do a HIDA scan and consider lap gt at the end of this admission. No indication for acute surgical intervention today. With above assessment, I've recommended the following for today: 1. F/u on MRCP results 2. F/u on GI consultation and recommendations 3. Possible outpatient lap gt vs. doing the operation during this admission Thank you again for your great care of this very pleasant patient and wonderful family. If there are any questions, please feel free to call me at [phone]. TOTAL VISIT TIME: 20 minutes of which more than half was spent in [id number] discussion with the patient, possibly including family, as well as coordination of care between multiple physicians and providers. Disclaimer: Inadvertent spelling or grammatical errors are likely due to EHR/ dictation software use and do not reflect on the overall quality of patient care. Updated Clinical Summary: The patient is a very pleasant 20-year-old young lady with a few comorbidities including BMI of 30.3, presenting to the emergency department and being admitted at [facility] on 08/28/2016 with abdominal pain, possibly due to cholelithiasis versus viral gastroenteritis. COMORBIDITIES: 1. BMI of 30.3. 2. Known history of cholelithiasis discovered during . 3. History of kidney stones. 4. G1, P1, A0 status with her child approximately 2 years old. Subjective: No major events or complaints; no abd pain and under control with medications; no n/v/d; no sob or cp; + flatus; + BM and normal; + activity Objective: Vitals: See below Exam: GENERAL: On exam, the patient was laying in bed and appeared to be comfortable and in no acute distress. ABDOMEN: Soft, nontender and nondistended. There are no peritoneal signs or guarding. SKIN: Skin appears to be pink and feels warm to touch. NEUROLOGIC: Patient is awake, alert, and follows commands appropriately. Exam/Review of Systems Vital Signs Vitals Vital Signs Date Time Temp Pulse Resp B/P Pulse Ox O2 Delivery O2 Flow Rate FiO2 08/28/16 21:31 98.4 64 18 101/69 99 08/28/16 02:40 Room Air Intake and Output 08/28/16 08/28/16 08/29/16 15:00 23:00 07:00 Intake Total 860 ml 1520 ml 600 ml Output Total 950 ml 750 ml Balance 860 ml 570 ml -150 ml Results Result Diagram: 08/29/16 0450 08/29/16 0450 MARY HERNANDEZ M.D. August 29, 2016 07:54
[2016-08-29 08:23] VITALS: BP 102/63; RESP 18
[2016-08-29] MEDS: FAMOTIDINE 20 MG INJ IV SCH (10:19)
[2016-08-29] MEDS: DEXTROSE 5%-0.45% NACL 1,000 ML IV SCH ×2 (10:21→18:44)
[2016-08-29] MEDS: morphine 2 MG INJ IV PRN (13:47)
--- NOTE | 2016-08-29 15:59 | PN ---
Date/Time of Note Date/Time of Note DATE: 08/29/16 TIME: 15:54 Assessment/Plan VTE Prophylaxis VTE Prophylaxis Intervention: SCD's Lines/Catheters IV Catheter Type (from [facility]): Peripheral IV Urinary Cath still in place: No Assessment/Plan Chief Complaint/Hosp Course Problems: Assessment/Plan Abdominal pain Ultrasound of abdomen Cholelithiasis. . No biliary ductal dilation or other signs of cholecystitis. * Elevated transaminases T/C choledocholithiasis MRCP Cholelithiasis is present with findings suggestive for acute cholecystitis. Although a discrete measurable stone is not visible on MRCP, the presence of mild intrahepatic and extrahepatic biliary ductal enlargement and low signal along the dependent portion of the common duct is suggestive of the presence of intraductal stones which can be better assessed with ERCP. Plan * ERCP risks and benefit explained to patient and agreed with the planned procedure * continue present management * pain control Subjective 24 Hr Interval Summary Free Text/Dictation * Course reviewed with RN * Patient seen and examined * Denies abdominal pain * MRCP Cholelithiasis is present with findings suggestive for acute cholecystitis. Although a discrete measurable stone is not visible on MRCP, the presence of mild intrahepatic and extrahepatic biliary ductal enlargement and low signal along the dependent portion of the common duct is suggestive of the presence of intraductal stones which can be better assessed with ERCP. Exam/Review of Systems Vital Signs Vitals Vital Signs Date Time Temp Pulse Resp B/P Pulse Ox O2 Delivery O2 Flow Rate FiO2 08/29/16 08:23 98.2 75 18 102/63 92 08/28/16 02:40 Room Air Intake and Output 08/28/16 08/28/16 08/29/16 15:00 23:00 07:00 Intake Total 860 ml 1520 ml 600 ml Output Total 950 ml 750 ml Balance 860 ml 570 ml -150 ml Exam Constitutional: alert, oriented Neck: non-tender, supple Respiratory: clear to auscultation, normal air movement Cardiovascular: nl pulses, regular rate and rhythm Gastrointestinal: non-tender, soft Musculoskeletal: nl extremities to inspection, nl gait and stance Extremities: normal pulses Results Result Diagram: 08/29/16 0450 08/29/16 045 Results 24 hrs Laboratory Tests Test 08/29/16 04:40 08/29/16 04:50 Total Bilirubin 1.8 H Direct Bilirubin 0.30 #H Indirect Bilirubin 1.5 H Aspartate Amino Transf (AST/SGOT) 571 H Alanine Aminotransferase (ALT/SGPT) 711 H Alkaline Phosphatase 145 H Total Protein 6.9 Albumin 3.6 White Blood Count 7.6 # Red Blood Count 4.32 Hemoglobin 12.3 Hematocrit 36.8 L Mean Corpuscular Volume 85.2 Mean Corpuscular Hemoglobin 28.5 L Mean Corpuscular Hemoglobin Concent 33.4 Red Cell Distribution Width 13.2 Platelet Count 271 Mean Platelet Volume 10.6 H Neutrophils % 52.8 Lymphocytes % 38.9 Monocytes % 5.5 Eosinophils % 2.2 Basophils % 0.3 Nucleated Red Blood Cells % 0.0 Neutrophils # 4.0 Lymphocytes # 3.0 H Monocytes # 0.4 Eosinophils # 0.2 Basophils # 0.0 Nucleated Red Blood Cells # 0.0 Sodium Level 139 Potassium Level 3.9 Chloride Level 107 Carbon Dioxide Level 27 Anion Gap 9 Blood Urea Nitrogen 5 L Creatinine 0.53 Glucose Level 94 Calcium Level 8.7 Phosphorus Level 3.0 Magnesium Level 2.1 Medications Medications Current Medications Dextrose/Sodium Chloride (D5-1/2ns) 1,000 ml @ 120 mls/hr Q8H20M IV Last administered on 08/29/16 10:21; Admin Dose 120 MLS/HR; Start 08/28/16 at 01:12 Ondansetron HCl 4 mg 4 mg Q6H PRN IV NAUSEA AND/OR VOMITING Last administered on 08/28/16 02:38; Admin Dose 4 MG; Start 08/28/16 at 01:30 Ampicillin Sodium/ Sulbactam Sodium (Unasyn 3gm/NS (Pmx)) 100 ml @ 100 mls/hr Q6 IVPB Last administered on 08/29/16 12:11; Admin Dose 100 MLS/HR; Start at 06:00 Morphine Sulfate (morphine) 2 mg Q4H PRN IV PAIN Last administered on 13:47; Admin Dose 2 MG; Start 08/28/16 at 17:30 Famotidine (Pepcid Iv) 20 mg DAILY IV Last administered on 08/29/16 10:19; Admin Dose 20 MG; Start 08/29/16 at 09:00 TRICIA GERMAN MD August 29, 2016 15:59
[2016-08-29] MEDS ORDERED: INDOMETHACIN 50 MG SUPP PR ONE (16:00)
[2016-08-29 20:45] VITALS: BP 107/70; RESP 20
[2016-08-30] VITALS (14 sets, daily range): BP systolic 97–119; BP diastolic 50–77; PULSE 57–79; RESP 17–20
[2016-08-30] MEDS: AMPICILLIN/SULB 3 GM/NS (PMX) 100 ML IVPB SCH ×4 (02:05→18:33)
[2016-08-30] MEDS: DEXTROSE 5%-0.45% NACL 1,000 ML IV SCH ×3 (04:14→20:46)
[2016-08-30 05:56] LABS: ADD SCAN DIFF NO
[2016-08-30 06:05] LABS: BASOPHILS % 0.4 % (0.0-2.0); EOSINOPHILS # 0.2 10^3/ul (0.0-0.5); EOSINOPHILS % 2.5 % (0.0-7.0); HEMATOCRIT 36.9 % (37.0-47.0); HEMOGLOBIN 12.3 g/dl (12.0-16.0); LYMPHOCYTES # 2.8 10^3/ul (0.8-2.9); LYMPHOCYTES % 41.1 % (15.0-51.0); MEAN CORPUSCULAR HGB CONC 33.3 g/dl (32.0-37.0); MEAN CORPUSCULAR VOLUME 83.9 fl (82.0-101.0); MEAN PLATELET VOLUME 10.6 fl (7.4-10.4); MONOCYTE # 0.5 10^3/ul (0.3-0.9); MONOCYTES % 6.9 % (0.0-11.0); NEUTROPHIL # 3.3 10^3/ul (1.6-7.5); NEUTROPHILS % 48.8 % (39.0-77.0); PLATELET COUNT 300 10^3/UL (140-415); RED CELL DISTRIBUTION WIDTH 13.3 % (11.5-14.5); WHITE BLOOD COUNT 6.8 10^3/ul (4.8-10.8)
[2016-08-30 06:31] LABS: PHOSPHORUS 3.5 mg/dl (2.5-4.9)
[2016-08-30 07:28] LABS: ALBUMIN 3.7 g/dl (3.3-4.9)
[2016-08-30 07:30] LABS: POTASSIUM 3.3 mmol/L (3.5-5.1)
[2016-08-30 07:31] LABS: BILIRUBIN,DIRECT 0.7 mg/dl (0.00-0.20); BILIRUBIN,INDIRECT 1.9 mg/dl (0-1.1); BILIRUBIN,TOTAL 2.6 mg/dl (0.2-1.3); TOTAL PROTEIN 7.1 g/dl (6.1-8.1)
[2016-08-30 07:32] LABS: CREATININE 0.51 mg/dl (0.44-1.00)
[2016-08-30 07:33] LABS: CALCIUM 8.9 mg/dl (8.4-10.2)
--- NOTE | 2016-08-30 07:52 | PN ---
DATE: 08/29/2016 SUBJECTIVE: The patient is still having some mild abdominal pain, asking when she can eat. She had her MRCP performed as well. Seen by surgery team this morning. OBJECTIVE: VITAL SIGNS: Stable. GENERAL: The patient is lying in bed. Family members are at the bedside. No acute distress. HEENT: Pupils equal, round, react to light. Extraocular muscles intact. NECK: Supple, no thyromegaly. LUNGS: Clear to auscultation bilaterally. CARDIOVASCULAR: S1, S2 heard. No rubs or gallops. ABDOMEN: Mild tenderness to palpation right upper quadrant area. No rebound or guarding. Otherwis e, normal bowel sounds. MUSCULOSKELETAL: No lower extremity edema bilaterally. NEUROLOGIC: No focal deficits. LABORATORY DATA: Her basic metabolic panel is normal, but her total bilirubin is now 1.8, direct bi lirubin 0.3, indirect is 1.5, AST is 571, ALT is 711, alkaline phosphatase 145. CBC is normal. Again, MRCP did show cholelithiasis is present with findings suggestive of acute cholecystitis, and then there is presence of mild intrahepatic and extrahepatic biliary ductal enlargement and low sign al along the dependent portion of the common bile duct suggestive of the presence of intraductal sto [place], which can be better assessed with ERCP. ASSESSMENT AND PLAN: A 20-year-old female with abdominal pain, nausea and vomiting with signs of po ssible choledocholithiasis and cholecystitis. 1. Abdominal pain, again secondary to cholecystitis and choledocholithiasis. Again, based on the M ACADEMIC DIRECTOR results, we will discuss with GI and surgery teams about how best to proceed. The patient most likely would benefit from ERCP. We will continue to keep her n.p.o., IV fluids, pain control medica tions, ____ as well. Continue antibiotics. 2. Gastrointestinal prophylaxis. GI prophylaxis with famotidine. 3. Deep vein thrombosis prophylaxis. Put on heparin subQ. Dictated By: KENTRELL BOSS Conf#: [id number] DID#: [id number]
[2016-08-30] MEDS: FAMOTIDINE 20 MG INJ IV SCH (10:45)
--- NOTE | 2016-08-30 14:48 | PN ---
Date/Time of Note Date/Time of Note DATE: 08/30/16 TIME: 14:43 Assessment/Plan VTE Prophylaxis VTE Prophylaxis Intervention: heparin Lines/Catheters IV Catheter Type (from [facility]): Peripheral IV Urinary Cath still in place: No Assessment/Plan Chief Complaint/Hosp Course ASSESSMENT AND PLAN: 20-year-old female with abdominal pain, nausea and vomiting with signs of possible choledocholithiasis and cholecystitis. 1. Abdominal pain - again secondary to cholecystitis and choledocholithiasis. - Again, based on the MRCP results, plan is for ERCP today, f/u GI and surgery team rec's. - continue to keep her n.p.o., IV fluids, pain control medications, ____ as well. - Continue antibiotics. 2. Gastrointestinal prophylaxis - GI prophylaxis with famotidine. 3. Deep vein thrombosis prophylaxis - heparin subQ. Problems: Subjective 24 Hr Interval Summary Free Text/Dictation Pt awaiting ERCP. No acute events overnight. Exam/Review of Systems Vital Signs Vitals Vital Signs Date Time Temp Pulse Resp B/P Pulse Ox O2 Delivery O2 Flow Rate FiO2 08/30/16 07:52 97.0 85 18 107/57 98 08/28/16 02:40 Room Air Intake and Output 08/29/16 08/29/16 08/30/16 15:00 23:00 07:00 Intake Total 100 ml 1400 ml 1500 ml Balance 100 ml 1400 ml 1500 ml Exam GENERAL: The patient is lying in bed. Family members are at the bedside. No acute distress. HEENT: Pupils equal, round, react to light. Extraocular muscles intact. NECK: Supple, no thyromegaly. LUNGS: Clear to auscultation bilaterally. CARDIOVASCULAR: S1, S2 heard. No rubs or gallops. ABDOMEN: Mild tenderness to palpation right upper quadrant area. No rebound or guarding. Otherwise, normal bowel sounds. MUSCULOSKELETAL: No lower extremity edema bilaterally. NEUROLOGIC: No focal deficits. Results Result Diagram: 08/30/16 0500 08/30/16 0500 Results 24 hrs Laboratory Tests Test 08/30/16 05:00 White Blood Count 6.8 Red Blood Count 4.40 Hemoglobin 12.3 Hematocrit 36.9 L Mean Corpuscular Volume 83.9 Mean Corpuscular Hemoglobin 28.0 L Mean Corpuscular Hemoglobin Concent 33.3 Red Cell Distribution Width 13.3 Platelet Count 300 Mean Platelet Volume 10.6 H Neutrophils % 48.8 Lymphocytes % 41.1 Monocytes % 6.9 Eosinophils % 2.5 Basophils % 0.4 Nucleated Red Blood Cells % 0.0 Neutrophils # 3.3 Lymphocytes # 2.8 Monocytes # 0.5 Eosinophils # 0.2 Basophils # 0.0 Nucleated Red Blood Cells # 0.0 Sodium Level 142 Potassium Level 3.3 L Chloride Level 105 Carbon Dioxide Level 26 Anion Gap 14 Blood Urea Nitrogen 5 L Creatinine 0.51 Glucose Level 139 # Calcium Level 8.9 Phosphorus Level 3.5 Magnesium Level 2.0 Total Bilirubin 2.6 H Direct Bilirubin 0.70 #H Indirect Bilirubin 1.9 H Aspartate Amino Transf (AST/SGOT) 408 H Alanine Aminotransferase (ALT/SGPT) 670 H Alkaline Phosphatase 181 H Total Protein 7.1 Albumin 3.7 Lipase 70 Medications Medications Current Medications Dextrose/Sodium Chloride (D5-1/2ns) 1,000 ml @ 120 mls/hr Q8H20M IV Last administered on 08/30/16 04:14; Admin Dose 120 MLS/HR; Start 08/28/16 at 01:12 Ondansetron HCl 4 mg 4 mg Q6H PRN IV NAUSEA AND/OR VOMITING Last administered on 08/28/16 02:38; Admin Dose 4 MG; Start 08/28/16 at 01:30 Ampicillin Sodium/ Sulbactam Sodium (Unasyn 3gm/NS (Pmx)) 100 ml @ 100 mls/hr Q6 IVPB Last administered on 08/30/16 13:23; Admin Dose 100 MLS/HR; Start at 06:00 Morphine Sulfate (morphine) 2 mg Q4H PRN IV PAIN Last administered on 13:47; Admin Dose 2 MG; Start 08/28/16 at 17:30 Famotidine (Pepcid Iv) 20 mg DAILY IV Last administered on 08/30/16 10:45; Admin Dose 20 MG; Start 08/29/16 at 09:00 KENTRELL BALLESTEROS August 30, 2016 14:48
[2016-08-30] MEDS ORDERED: IOHEXOL 300MG/ML 30 ML BTL ONE (18:04)
[2016-08-30] MEDS ORDERED: INDOMETHACIN 50 MG SUPP PR ONE (18:04)
--- NOTE | 2016-08-30 18:26 | PN ---
Date/Time of Note Date/Time of Note DATE: 08/30/16 TIME: 18:24 Assessment/Plan Lines/Catheters IV Catheter Type (from [facility]): Peripheral IV Xiao in Place (from [facility]): No Assessment/Plan Assessment/Plan [facility] Progress Note Date of Service: 08/30/16 Today's Impression & Plan: Overall stable. Rise in LFT's indicate choledocholithiasis. S/f ERCP. On the schedule for lap gt 08/31/16 depending on ERCP findings. Consented patient for surgery. With above assessment, I've recommended the following for today: 1. F/u on MRCP results 2. Lap gt tomorrow Thank you again for your great care of this very pleasant patient and wonderful family. If there are any questions, please feel free to call me at [phone]. TOTAL VISIT TIME: 20 minutes of which more than half was spent in [id number] discussion with the patient, possibly including family, as well as coordination of care between multiple physicians and providers. Disclaimer: Inadvertent spelling or grammatical errors are likely due to EHR/ dictation software use and do not reflect on the overall quality of patient care. Updated Clinical Summary: The patient is a very pleasant 20-year-old young lady with a few comorbidities including BMI of 30.3, presenting to the emergency department and being admitted at [facility] on 08/28/2016 with abdominal pain, possibly due to cholelithiasis versus viral gastroenteritis. COMORBIDITIES: 1. BMI of 30.3. 2. Known history of cholelithiasis discovered during . 3. History of kidney stones. 4. G1, P1, A0 status with her child approximately 2 years old. Subjective: No major events or complaints except above; no abd pain and under control with medications; no n/v/d; no sob or cp; + flatus; + BM and normal; + activity Objective: Vitals: See below Exam: GENERAL: On exam, the patient was sitting in a chair and appeared to be comfortable and in no acute distress. ABDOMEN: Soft, nontender and nondistended. There are no peritoneal signs or guarding. SKIN: Skin appears to be pink and feels warm to touch. NEUROLOGIC: Patient is awake, alert, and follows commands appropriately. Exam/Review of Systems Vital Signs Vitals Vital Signs Date Time Temp Pulse Resp B/P Pulse Ox O2 Delivery O2 Flow Rate FiO2 08/30/16 07:52 97.0 85 18 107/57 98 08/28/16 02:40 Room Air Intake and Output 08/29/16 08/29/16 08/30/16 15:00 23:00 07:00 Intake Total 100 ml 1400 ml 1500 ml Balance 100 ml 1400 ml 1500 ml Results Result Diagram: 08/30/16 0500 08/30/16 0500 MARY HERNANDEZ M.D. August 30, 2016 18:26
--- NOTE | 2016-08-30 18:28 | HPN ---
Date/Time of Note Date/Time of Note DATE: 08/30/16 TIME: 18:28 Interval H&P Admission Note Pt. seen H&P reviewed: No system changes TRICIA GERMAN MD August 30, 2016 18:28
[2016-08-30] MEDS ORDERED: LIDOCAINE 2% (SDV) 5 ML INJ ONE (18:38)
[2016-08-30] MEDS ORDERED: SUCCINYLCHOLINE CHLORIDE 100 MG/5 ML SYG IV ONE (18:38)
[2016-08-30] MEDS ORDERED: PROPOFOL 20 ML ONE (18:39)
[2016-08-30] MEDS ORDERED: MIDAZOLAM 1 MG/ML 2 ML INJ ONE (18:39)
[2016-08-30] MEDS ORDERED: FENTAnyl 50 MCG/ML VIAL ONE (18:39)
[2016-08-30] MEDS ORDERED: ONDANSETRON 4 MG INJ IV PRN (19:00)
[2016-08-30] MEDS ORDERED: PROCHLORPERAZINE 10 MG INJ IV PRN (19:00)
[2016-08-30] MEDS ORDERED: MEPERIDINE 25 MG INJ IV PRN (19:00)
[2016-08-30] MEDS ORDERED: FENTAnyl 50 MCG/ML VIAL IV PRN (19:00)
[2016-08-30] MEDS ORDERED: METOCLOPRAMIDE 10 MG INJ IV PRN (19:00)
[2016-08-30] MEDS ORDERED: DIPHENHYDRAMINE 50 MG INJ IV PRN (19:00)
[2016-08-30] MEDS ORDERED: DEXAMETHASONE 4 MG/ML 1 ML INJ ONE (19:02)
[2016-08-30] MEDS ORDERED: ONDANSETRON 4 MG INJ ONE (19:02)
[2016-08-30] MEDS ORDERED: METOCLOPRAMIDE 10 MG INJ ONE (19:02)
[2016-08-31] VITALS (15 sets, daily range): BP systolic 102–136; BP diastolic 59–79; PULSE 62–98; RESP 15–44
[2016-08-31] MEDS: AMPICILLIN/SULB 3 GM/NS (PMX) 100 ML IVPB SCH ×2 (00:33→05:15)
[2016-08-31 05:14] LABS: ADD SCAN DIFF NO
[2016-08-31] MEDS: DEXTROSE 5%-0.45% NACL 1,000 ML IV SCH (05:15)
[2016-08-31 05:21] LABS: BASOPHILS % 0.1 % (0.0-2.0); HEMATOCRIT 39.6 % (37.0-47.0); HEMOGLOBIN 13.1 g/dl (12.0-16.0); LYMPHOCYTES # 1.2 10^3/ul (0.8-2.9); MEAN CORPUSCULAR HEMOGLOBIN 27.7 pg (29.0-33.0); MEAN CORPUSCULAR HGB CONC 33.1 g/dl (32.0-37.0); MEAN CORPUSCULAR VOLUME 83.7 fl (82.0-101.0); MEAN PLATELET VOLUME 10.6 fl (7.4-10.4); MONOCYTE # 0.2 10^3/ul (0.3-0.9); MONOCYTES % 1.4 % (0.0-11.0); NEUTROPHIL # 9.1 10^3/ul (1.6-7.5); NEUTROPHILS % 87.1 % (39.0-77.0); PLATELET COUNT 292 10^3/UL (140-415); RED BLOOD COUNT 4.73 10^6/ul (4.20-5.40); RED CELL DISTRIBUTION WIDTH 13.3 % (11.5-14.5); WHITE BLOOD COUNT 10.5 10^3/ul (4.8-10.8)
[2016-08-31 05:47] LABS: CREATININE 0.38 mg/dl (0.44-1.00)
[2016-08-31 05:48] LABS: CALCIUM 9.3 mg/dl (8.4-10.2)
[2016-08-31] MEDS ORDERED: BUPIVACAINE 0.25%/EPI (SDV) 30 ML INJ ONE (06:59)
[2016-08-31] MEDS ORDERED: EPHEDrine SULFATE 50 MG/5 ML SYG ONE (07:00)
[2016-08-31] MEDS ORDERED: MIDAZOLAM 1 MG/ML 2 ML INJ ONE (07:28)
[2016-08-31] MEDS ORDERED: NEOSTIGMINE 3 MG/3 ML SYRINGE ONE (07:28)
[2016-08-31] MEDS ORDERED: ROPIVACAINE 0.5 % 30 ML VIAL ONE (07:28)
[2016-08-31] MEDS ORDERED: METOCLOPRAMIDE 10 MG INJ ONE (07:28)
[2016-08-31] MEDS ORDERED: GLYCOPYRROLATE 0.4 MG INJ ONE (07:28)
[2016-08-31] MEDS ORDERED: ROCURONIUM 50 MG INJ ONE (07:28)
[2016-08-31] MEDS ORDERED: PROPOFOL 20 ML ONE (07:28)
[2016-08-31] MEDS ORDERED: KETOROLAC 30 MG INJ ONE (07:29)
[2016-08-31] MEDS ORDERED: LIDOCAINE 2% JELLY 5 ML ONE (07:34)
--- NOTE | 2016-08-31 07:37 | HPN ---
Date/Time of Note Date/Time of Note DATE: 08/31/16 TIME: 07:37 Interval H&P Admission Note Pt. seen H&P reviewed: No system changes Pt. seen H&P reviewed. No system changes (I attest that I have seen and examined the patient and reviewed the operation in detail, as well as its risks , benefits and alternatives of the operation). I attest that I have seen and examined the patient and reviewed in detail the operation, and its associated risks, benefits and alternative. I have answered all the patient's questions to the best of my ability and the patient wishes to proceed. Please refer to rest of electronic medical record for additional updates. MARY HERNANDEZ M.D. August 31, 2016 07:37
[2016-08-31] MEDS ORDERED: HYDROmorphONE 2 MG/ML SYG ONE (08:23)
[2016-08-31] MEDS ORDERED: DIPHENHYDRAMINE 50 MG INJ IV PRN (08:30)
[2016-08-31] MEDS ORDERED: HYDROmorphONE (0.2 MG/ML) 10ML SYG IV PRN ×2 (08:30)
[2016-08-31] MEDS ORDERED: METOCLOPRAMIDE 10 MG INJ IV PRN (08:30)
[2016-08-31] MEDS ORDERED: ONDANSETRON 4 MG INJ IV PRN (08:30)
[2016-08-31] MEDS ORDERED: MEPERIDINE 25 MG INJ IV PRN (08:30)
[2016-08-31] MEDS: FAMOTIDINE 20 MG INJ IV SCH (09:00)
--- NOTE | 2016-08-31 09:48 | OPR ---
Date/Time of Note Date/Time of Note DATE: 08/31/16 TIME: 09:48 Operative Report Procedure Description [facility] INPATIENT OPERATIVE NOTE PLACE OF SERVICE: [facility] DATE OF SURGERY: 08/31/2016 PREOPERATIVE DIAGNOSIS: 1. Possible acute cholecystitis with cholelithiasis and possible choledocholithiasis 2. Known history of cholelithiasis discovered during . 3. History of kidney stones. 4. G1, P1, A0 status with her child approximately 2 years old. 5. BMI of 30.3. 6. Status post ERCP 08/30/2016 at [facility] POSTOPERATIVE DIAGNOSIS: 1. Chronic cholecystitis with cholelithiasis and possible choledocholithiasis 2. Known history of cholelithiasis discovered during . 3. History of kidney stones. 4. G1, P1, A0 status with her child approximately 2 years old. 5. BMI of 30.3. 6. Status post ERCP 08/30/2016 at [facility] OPERATION: 1. Laparoscopic cholecystectomy SURGEON: Mary Benoit M.D. ACID[employer]ER [employer] WELL: Karina ANESTHESIA: General endotracheal tube anesthesia ANESTHESIOLOGIST: Jena Gee M.D. BRIEF SUMMARY: An otherwise uncomplicated laparoscopic cholecystectomy was performed with findings of chronic cholecystitis and cholelithiasis. Updated Clinical Summary: The patient is a very pleasant 20-year-old young lady with a few comorbidities including BMI of 30.3, presenting to the emergency department and being admitted at [facility] on 08/28/2016 with abdominal pain, possibly due to cholelithiasis versus viral gastroenteritis. COMORBIDITIES: 1. BMI of 30.3. 2. Known history of cholelithiasis discovered during . 3. History of kidney stones. 4. G1, P1, A0 status with her child approximately 2 years old. BRIEF HISTORY: The patient is a very pleasant 20-year-old lady with above- mentioned history and comorbidities who was admitted to the hospital for biliary disease and underwent an ERCP on 08/30/2016 to clear the common bile duct given the rise in liver function tests and liver injury parameters, as well as the MRCP findings which were suggestive of possible sludge in the common bile duct. I met with the patient and family shortly after admission and counseled them regarding the possible options of treatment, and I strongly suggested a laparoscopic, possible open cholecystectomy after we had diagnosed her with possible choledocholithiasis and ERCP was scheduled. We reviewed the operation in detail as well as the risks, benefits, alternatives, and expected outcomes of this operation. After careful consideration of all the risks, benefits, and alternatives, the patient and family appeared to understand those risks and wished to proceed with surgery. For a detailed report of my consultation with patient and family, please refer to my separate consultation note. STATEMENT OF THE INFORMED CONSENT: The patient and family appeared to understand the risks of the operation to include, but not be limited to risk of postoperative pain and scar tissue, possible infection or bleeding requiring other interventions such as opening the wound, placement of drainage catheters, or other operative interventions; possible injury to surrounding to structures including bowel, bladder, bile duct, or blood vessels, or solid organs such as liver, kidney, or pancreas requiring other interventions or procedures; possible leakage of bile from surgical clip sites, suture lines, or worse, from common bile duct injury, causing significant increase in morbidity and mortality and requiring multiple interventions including but not limited to, placement of drainage catheters, imaging studies, as well as operative interventions; possible other source of sepsis such as urinary tract infections or pneumonias, or other sources of potentially life threatening problems such as deep venous thrombus formation causing pulmonary embolism, myocardial arrhythmias and infarctions, and even . After careful consideration of all their options, the patient and family appeared to understand and wished to proceed with surgery. DESCRIPTION OF PROCEDURE: After obtaining informed consent, the patient was brought into the operating room and was placed in a normal supine position, where successful general endotracheal tube anesthesia was performed. The patient 's abdominal skin was prepped and draped, from the nipple line down to the level of the groins, in the usual sterile fashion. Intravenous access was already in place, and appropriately chosen and dosed prophylactic intravenous antimicrobials were administered. We then called a surgical time-out where patient's identification, date of , nature of the operation, allergies, presence of intravenous antimicrobials, presence of needed equipment, and any other concerns were reviewed and agreed upon by all members of the operating room team. We then started the operation by placing a 5-mm skin incision in the right- upper quadrant, subcostal midclavicular line, and introduced a 5-mm [employer] trocar into the peritoneal space, visualizing all the layers of the abdominal wall as we entered. Note that there was no indication of any injury to underlying structures once we entered the peritoneum. We insufflated the abdominal cavity to a maximum pressure of 15 mmHg, again, confirmed lack of any injury to underlying structures prior to visualizing the rest of the abdominal cavity. We found the fundus of the gallbladder to be visible. There was no evidence of malignancy. No evidence of calcifications or significant issues with adhesions, or other abnormalities. The liver appeared to be healthy. With this information, we went a head and placed the other trocars under direct visualization, after injecting their sites with 0.25% Marcaine with epinephrine , placing a 5-mm trocar in the umbilical midline area, a 5-mm trocar in the right anterior axillary line, and a 12-mm trocar in the midline subxiphoid region. With our instruments in place, we had excellent visualization and access to the right-upper quadrant. We then we grasped the fundus of the gallbladder and pointed up towards the right-upper quadrant. There was mild omental adhesions onto the infundibulum which we took down with judicious use of cautery, as well as meticulous blunt dissection. We were then able to grasp the infundibulum and pull it out in order to expose the critical triangle of Calot. We then placed our usual serosal cuts along the long axis of the gallbladder 1 cm away from its attachment to the liver bed up towards the fundus, and then joined these 2 lines under the infundibulum, taking care not to deliver any energy to underlying structures. Given the degree of inflammation around the triangle of Calot low, I decided to maximize the degree of safety of the operation by taking the gallbladder top-down which we achieved using cautery. We then performed meticulous dissection to identify and circumferentially isolate both the cystic duct and cystic artery. Patient had 2 sets of arteries were which were around the cystic duct and we transected these between 2 surgical and the clips proximally and one distally. The cystic duct itself appeared to be slightly larger in caliber than the clip cylinder tester could safely handle. For this reason, I decided transected using one firing of the Endo JESIKA stapler with a vascular (white) load. We then delivered the gallbladder out inside of an EndoCatch bag through the 12-mm trocar site without enlarging the fascia or contaminating the wound. The gallbladder was sent to Pathology for evaluation. Note that the gallbladder had innumerable small stones as seen on prior imaging. Returning to the abdominal cavity, we ensured that there was adequate hemostasis and bile-stasis prior to removal of all of or equipment, including the pneumoperitoneum, and then reapproximating the 12-mm trocar site with one [id number] 0 Vicryl suture, followed by washing the wounds with copious amounts of normal saline, and then reapproximating the skin using interrupted 4- 0 Monocryl sutures. Light dressing was then applied. At the end of the operation, both the sponge count and needle count were reportedly correct x2. The patient tolerated the procedure without any reported complications. ESTIMATED BLOOD LOSS: Less than 10 mL. BLOOD OR BLOOD PRODUCT TRANSFUSIONS: None to my knowledge. SPECIMENS: 1. Gallbladder COMPLICATIONS: None. DISPOSITION: Recovery area. Disclaimer: Inadvertent spelling and grammatical errors are likely due to EHR/ dictation software use and do not reflect on the quality of delivered patient care. MARY BENOIT M.D. August 31, 2016 09:48
[2016-08-31] MEDS: HYDROmorphONE (0.2 MG/ML) 10ML SYG IV PRN ×4 (09:50→10:12)
[2016-08-31] MEDS ORDERED: NA PHOSPHATE/BIPHOS 133 ML ENEMA PR PRN (10:00)
[2016-08-31] MEDS ORDERED: DOCUSATE SODIUM 100 MG CAP PO PRN (10:00)
[2016-08-31] MEDS ORDERED: HYDROCODONE/APAP (5/325) TAB PO PRN (10:00)
[2016-08-31] MEDS ORDERED: BISACODYL 10 MG SUPP PR PRN (10:00)
[2016-08-31] MEDS ORDERED: HYDROmorphONE 1 MG/ML SYG IV PRN (10:00)
[2016-08-31] MEDS: D5W-0.45 NACL + KCL 20 MEQ 1,000 ML IV SCH ×2 (11:07→20:10)
--- NOTE | 2016-08-31 11:19 | RADRPT ---
PROCEDURE: X-ray, ERCP. CLINICAL INDICATION: Cholelithiasis. TECHNIQUE: Fluoroscopic assistance provided during ERCP. 6 fluoroscopic images were obtained. Flu oroscopy time: 62.8 seconds. COMPARISON: MRCP 08/28/2016. FINDINGS: Opacification of the biliary ducts is identified. Fluoroscopic images demonstrate balloon suite. Ch olelithiasis is observed. IMPRESSION: Fluoroscopic assistance provided for ERCP. Please see procedural report. RPTAT: HLST .Lorena Cedillo MD, MD Date Time Electronically viewed and signed by .Lorena Cedillo MD, on 08/31/2016 11:19 .T/
--- NOTE | 2016-08-31 12:41 | PDOCDIS ---
Discharge Instructions CONDITION Patient Condition: Stable HOME CARE INSTRUCTIONS: Special Diet: regular if tolerating ACTIVITY: Activity Restrictions: Slowly Increase Activity FOLLOW UP/APPOINTMENTS Appointments See your doctor in the clinic in 1 week, take your medications as prescribed. KENTRELL BALLESTEROS August 31, 2016 12:41
[2016-08-31] MEDS ORDERED: ONDA8TAB14 PO (12:42)
--- NOTE | 2016-08-31 13:01 | DS ---
DATE OF ADMISSION: 08/28/2016 DATE OF DISCHARGE: 08/31/2016 HOSPITAL COURSE: This is a 20-year-old female originally admitted on 08/28/2016 being discharged ho ny if she tolerates ____. On 08/28/2016, the patient came in with this abdominal pain, nausea, vomit ing. She was admitted to med/surg floor, seen by GI and surgery teams. She was found with probable choledocholithiasis and underlying cholecystitis. She was made n.p.o. Her laboratories, including her liver enzymes and her lipase levels were trended. Her lipase was normal. She did have some el evated liver function tests as well. In any event, she underwent MRCP that showed cholelithiasis wi th findings of acute cholecystitis and probable choledocholithiasis. The patient underwent the ERCP procedure. She tolerated it well, and 24 hours later, she underwent laparoscopic assisted laparosc opic cholecystectomy as well. Patient tolerated the procedure well. Today, we are going to start h er on a clear liquid diet based on the surgery recommendations and we are going to the advance the d iet later today, as her vital signs are stable. She has minimal abdominal pain symptoms. She is am bulating and if she tolerates the diet advancement, she will be discharged home later today in impro aly condition. DISCHARGE MEDICATIONS: If she goes today, she will be sent with: 1. Zyrtec 10 mg daily. 2. [place] 5/325 q.6h. p.r.n. 3. Zofran 8 mg p.o. q.6h. p.r.n. 4. Multivitamin 1 tab daily. She follow up with primary care doctor and see him in the clinic in the next 1 to 2 weeks. FINAL DIAGNOSES: Abdominal pain secondary to a combination of choledocholithiasis or acute cholecyst itis, status post ERCP, and status post cholecystectomy. Time spent discharging the patient 40 minutes. Dictated By: KENTRELL BOSS Conf#: [id number] DID#: [id number]
[2016-08-31] MEDS: HYDROmorphONE 1 MG/ML SYG IV PRN ×2 (16:03→19:46)
--- NOTE | 2016-08-31 16:39 | PN ---
Date/Time of Note Date/Time of Note DATE: 08/31/16 TIME: 16:35 Assessment/Plan VTE Prophylaxis VTE Prophylaxis Intervention: SCD's Lines/Catheters IV Catheter Type (from [facility]): Peripheral IV Urinary Cath still in place: No Assessment/Plan Chief Complaint/Hosp Course Problems: Assessment/Plan Assessment * Choledocholithiasis S/P ERCP/ERS?Balloon dilatation 08/30/2016 S/P Laparoscopic cholecystectomy 08/31/2016 Plan * continue present management Subjective 24 Hr Interval Summary Free Text/Dictation * Course reviewed with RN * Patient seen and examined * S/P ERCP/ERS/Balloon dilatation,removal of stone * S/P cholecystectomy Exam/Review of Systems Vital Signs Vitals Vital Signs Date Time Temp Pulse Resp B/P Pulse Ox O2 Delivery O2 Flow Rate FiO2 08/31/16 11:08 97.7 94 18 110/79 100 Room Air Intake and Output 08/30/16 08/30/16 08/31/16 15:00 23:00 07:00 Intake Total 200 ml 1100 ml 1160 ml Output Total 1100 ml 750 ml Balance 200 ml 0 ml 410 ml Exam Constitutional: alert, oriented Head: normocephalic Neck: non-tender, supple Respiratory: clear to auscultation, normal air movement Cardiovascular: nl pulses, regular rate and rhythm Gastrointestinal: non-tender, soft Musculoskeletal: nl extremities to inspection Results Result Diagram: 08/31/160 08/31/16 0450 Results 24 hrs Laboratory Tests Test 08/30/16 21:37 08/31/16 04:50 Bedside Glucose 128 White Blood Count 10.5 # Red Blood Count 4.73 Hemoglobin 13.1 Hematocrit 39.6 Mean Corpuscular Volume 83.7 Mean Corpuscular Hemoglobin 27.7 L Mean Corpuscular Hemoglobin Concent 33.1 Red Cell Distribution Width 13.3 Platelet Count 292 Mean Platelet Volume 10.6 H Neutrophils % 87.1 H Lymphocytes % 11.0 L Monocytes % 1.4 Eosinophils % 0.0 Basophils % 0.1 Nucleated Red Blood Cells % 0.0 Neutrophils # 9.1 H Lymphocytes # 1.2 Monocytes # 0.2 L Eosinophils # 0.0 Basophils # 0.0 Nucleated Red Blood Cells # 0.0 Sodium Level 142 Potassium Level 4.0 Chloride Level 106 Carbon Dioxide Level 23 Anion Gap 17 H Blood Urea Nitrogen 5 L Creatinine 0.38 L Glucose Level 151 Calcium Level 9.3 Medications Medications Current Medications Ondansetron HCl 4 mg 4 mg Q6H PRN IV NAUSEA AND/OR VOMITING Last administered on 08/28/16 02:38; Admin Dose 4 MG; Start 08/28/16 at 01:30 Potassium Chloride/Dextrose/ Sod Cl (D5-1/2ns + KCl 20 Meq) 1,000 ml @ 100 mls/ hr Q10H IV Last administered on 08/31/16 11:07; Admin Dose 100 MLS/HR; Start 08/31/16 at 09:34 Acetaminophen/ Hydrocodone Bitart ([place] (5/325)) 1 tab Q4H PRN PO PAIN LEVEL 4 -7; Start 08/31/16 at 10:00 Acetaminophen/ Hydrocodone Bitart ([place] (5/325)) 2 tab Q4H PRN PO PAIN LEVEL 7 -10 Last administered on 08/31/16 13:28; Admin Dose 2 TAB; Start 08/31/16 at 10 :00 Hydromorphone HCl (Dilaudid) 0.5 mg Q2H PRN IV PAIN; Start 08/31/16 at 10:00 Hydromorphone HCl (Dilaudid) 1 mg Q2H PRN IV PAIN Last administered on 16:03; Admin Dose 1 MG; Start 08/31/16 at 10:00 Docusate Sodium (Colace) 100 mg BID PRN PO CONSTIPATION; Start 08/31/16 at 10: 00 Bisacodyl (Dulcolax Supp) 10 mg BID PRN DC CONSTIPATION; Start 08/31/16 at 10: 00 Sodium Biphosphate/ Sodium Phosphate (Fleet Enema) 133 ml BID PRN DC CONSTIPATION; Start 08/31/16 at 10:00 Enoxaparin Sodium (Lovenox) 40 mg DAILY SC ; Start 09/01/16 at 09:00 Famotidine (Pepcid) 40 mg HS PO ; Start 08/31/16 at 21:00 TRICIA GERMAN MD August 31, 2016 16:39
[2016-08-31] MEDS ORDERED: FAMOTIDINE 20 MG TAB PO SCH (21:00)
[2016-08-31] MEDS: DIPHENHYDRAMINE 50 MG INJ IV PRN (22:24)
[2016-09-01] MEDS: HYDROmorphONE 1 MG/ML SYG IV PRN ×2 (00:28→05:52)
[2016-09-01] MEDS: DIPHENHYDRAMINE 50 MG INJ IV PRN (04:24)
[2016-09-01] MEDS: D5W-0.45 NACL + KCL 20 MEQ 1,000 ML IV SCH (04:27)
[2016-09-01 05:11] VITALS: BP 103/59; PULSE 60; RESP 16
[2016-09-01 05:28] LABS: ADD SCAN DIFF NO
[2016-09-01 05:36] LABS: BASOPHILS % 0.2 % (0.0-2.0); EOSINOPHILS # 0.1 10^3/ul (0.0-0.5); EOSINOPHILS % 0.6 % (0.0-7.0); HEMATOCRIT 34.1 % (37.0-47.0); HEMOGLOBIN 11.1 g/dl (12.0-16.0); LYMPHOCYTES # 4.4 10^3/ul (0.8-2.9); MEAN CORPUSCULAR HGB CONC 32.6 g/dl (32.0-37.0); MEAN CORPUSCULAR VOLUME 86.1 fl (82.0-101.0); MEAN PLATELET VOLUME 10.7 fl (7.4-10.4); MONOCYTE # 0.5 10^3/ul (0.3-0.9); MONOCYTES % 4.8 % (0.0-11.0); NEUTROPHILS % 50.1 % (39.0-77.0); PLATELET COUNT 248 10^3/UL (140-415); RED BLOOD COUNT 3.96 10^6/ul (4.20-5.40); RED CELL DISTRIBUTION WIDTH 13.9 % (11.5-14.5)
[2016-09-01 05:51] VITALS: BP 106/69; PULSE 82
[2016-09-01 05:56] LABS: CALCIUM 8.8 mg/dl (8.4-10.2); CREATININE 0.45 mg/dl (0.44-1.00); POTASSIUM 3.6 mmol/L (3.5-5.1)
[2016-09-01 08:12] VITALS: BP 103/66; RESP 16
[2016-09-01] MEDS ORDERED: ENOXAPARIN 40 MG/0.4 ML SYG SC SCH (09:00)
[2016-09-01] MEDS: HYDROCODONE/APAP (5/325) TAB PO PRN ×3 (09:14→16:34)
--- NOTE | 2016-09-01 14:15 | DS ---
Date/Time of Note Date/Time of Note DATE: 09/01/16 TIME: 14:14 Discharge Summary Admission/Discharge Info Admit Date/Time August 28, 2016 at 01:03 Discharge Date/Time Final Diagnosis DISCHARGE MEDICATIONS: If she goes today, she will be sent with: 1. Zyrtec 10 mg daily. 2. [place] 5/325 q.6h. p.r.n. 3. Zofran 8 mg p.o. q.6h. p.r.n. 4. Multivitamin 1 tab daily. 5. Colace 100 mg PO BID She follow up with primary care doctor and see him in the clinic in the next 1 to 2 weeks. FINAL DIAGNOSES: Abdominal pain secondary to a combination of choledocholithiasis or acute cholecystitis, status post ERCP, and status post cholecystectomy. Time spent discharging the patient 40 minutes. Hospital Course DATE OF ADMISSION: 08/28/2016 DATE OF DISCHARGE: 09/01/2016 HOSPITAL COURSE: This is a 20-year-old female originally admitted on 2016 being discharged home 09/01/2016, the patient came in with this abdominal pain, nausea, vomiting. She was admitted to med/surg floor, seen by GI and surgery teams. She was found with probable choledocholithiasis and underlying cholecystitis. She was made n.p.o. Her laboratories, including her liver enzymes and her lipase levels were trended. Her lipase was normal. She did have some elevated liver function tests as well. In any event, she underwent MRCP that showed cholelithiasis with findings of acute cholecystitis and probable choledocholithiasis. The patient underwent the ERCP procedure. She tolerated it well, and 24 hours later, she underwent laparoscopic assisted laparoscopic cholecystectomy as well. Patient tolerated the procedure well. Today, we are going to start her on a clear liquid diet based on the surgery recommendations and we are going to the advance the diet later today, as her vital signs are stable. She has minimal abdominal pain symptoms. She is ambulating and will be discharged home later today in improved condition. Home Meds Active Scripts Ondansetron (Ondansetron Odt) 8 Mg Tab.rapdis, 8 MG PO Q6H Y for NAUSEA AND/OR VOMITING, #10 TAB Prov:KENTRELL BALLESTEROS. 08/31/16 Hydrocodone/Acetaminophen ([place] 5-325 Tablet) 1 Each Tablet, 1 TAB PO Q6H Y for PAIN, #15 TAB Prov:VASQUEZ MCDANIEL MD 12/13/15 Cetirizine Hcl* (Zyrtec*) 10 Mg Capsule, 10 MG PO DAILY, #20 TAB.CHEW Prov:VASQUEZ MCDANIEL MD 09/19/15 Multivit/Min/Fol Ac/Iron/Pren* ( S*) 1 Tab Tab, 1 TAB PO DAILY, #120 TAB Prov:TARYN JENSEN NP 03/08/15 Discontinued Scripts Ibuprofen* (Motrin*) 600 Mg Tab, 600 MG PO Q6H Y for PAIN AND OR ELEVATED TEMP, #30 TAB Prov:PA BROOKE NP 08/15/16 Ibuprofen* (Motrin*) 600 Mg Tab, 600 MG PO Q8, #30 TAB Prov:BEATA TERRY PA-C 06/25/16 Amoxicillin* (Amoxicillin*) 500 Mg Cap, 500 MG PO TID for 10 Days, CAP Prov:BEATA TERRY PA-C 06/25/16 Amoxicillin/Potassium Clav (Amox-Clav 875-125 mg Tablet) 875-125 mg Tab, 1 TAB PO BID for 7 Days, #14 TAB Prov:VASQUEZ MCDANIEL MD 12/13/15 Primary Care Provider Care Physician No Primary Pending Labs Laboratory Tests Test 09/01/16 05:00 White Blood Count 10.010^3/ul (4.8-10.8) Red Blood Count 3.9610^6/ul (4.20-5.40) Hemoglobin 11.1g/dl (12.0-16.0) Hematocrit 34.1% (37.0-47.0) Mean Corpuscular Volume 86.1fl (82.0-101.0) Mean Corpuscular Hemoglobin 28.0pg (29.0-33.0) Mean Corpuscular Hemoglobin Concent 32.6g/dl (32.0-37.0) Red Cell Distribution Width 13.9% (11.5-14.5) Platelet Count 57155^3/UL (140-415) Mean Platelet Volume 10.7fl (7.4-10.4) Neutrophils % 50.1% (39.0-77.0) Lymphocytes % 44.0% (15.0-51.0) Monocytes % 4.8% (0.0-11.0) Eosinophils % 0.6% (0.0-7.0) Basophils % 0.2% (0.0-2.0) Nucleated Red Blood Cells % 0.0/100WBC (0.0-0.0) Neutrophils # 5.010^3/ul (1.6-7.5) Lymphocytes # 4.410^3/ul (0.8-2.9) Monocytes # 0.510^3/ul (0.3-0.9) Eosinophils # 0.110^3/ul (0.0-0.5) Basophils # 0.010^3/ul (0.0-0.1) Nucleated Red Blood Cells # 0.010^3/ul (0.0-0.0) Sodium Level 139mmol/L (135-144) Potassium Level 3.6mmol/L (3.5-5.1) Chloride Level 108mmol/L (97-110) Carbon Dioxide Level 27mmol/L (21-31) Anion Gap 8 (8-16) Blood Urea Nitrogen 5mg/dl (7-20) Creatinine 0.45mg/dl (0.44-1.00) Glucose Level 104mg/dl (70-220) Calcium Level 8.8mg/dl (8.4-10.2) KENTRELL BALLESTEROS September 01, 2016 14:15
--- NOTE | 2016-09-01 14:46 | PN ---
Date/Time of Note Date/Time of Note DATE: 09/01/16 TIME: 14:43 Assessment/Plan Lines/Catheters IV Catheter Type (from Nrs): Peripheral IV Xiao in Place (from Nrs): No Assessment/Plan Assessment/Plan [facility] Progress Note Date of Service: 09/01/16 Today's Impression & Plan: Overall doing well post op without major issues. No major wound problems. With above assessment, I've recommended the following for today: 1. D/c home 2. Please include the following in d/c instructions: "Please call [phone] if any of fever, nausea, vomiting, discharge from wound, wound redness, increase or sudden pain, blood in stool or vomit, or any other unusual signs or symptoms. Also, please call the same number in a few days to schedule an appointment for your follow up visit. Patient may remove dressings tomorrow. Showers OK starting tomorrow. No swimming , hot tub or bath for 2 weeks. No lifting more than 25 lbs for 8 weeks." Thank you again for your great care of this very pleasant patient and wonderful family. If there are any questions, please feel free to call me at [phone]. TOTAL VISIT TIME: 20 minutes of which more than half was spent in [id number] discussion with the patient, possibly including family, as well as coordination of care between multiple physicians and providers. Disclaimer: Inadvertent spelling or grammatical errors are likely due to EHR/ dictation software use and do not reflect on the overall quality of patient care. Updated Clinical Summary: The patient is a very pleasant 20-year-old young lady with a few comorbidities including BMI of 30.3, presenting to the emergency department and being admitted at [facility] on 08/28/2016 with abdominal pain, possibly due to cholelithiasis versus viral gastroenteritis. COMORBIDITIES: 1. Chronic cholecystitis with cholelithiasis and possible choledocholithiasis 2. Known history of cholelithiasis discovered during . 3. History of kidney stones. 4. G1, P1, A0 status with her child approximately 2 years old. 5. BMI of 30.3. 6. Status post ERCP 08/30/2016 at [facility] 7. S/p lap gt at [facility] 08/31/16 with findings of chronic cholecystitis and cholelithiasis. Subjective: No major events or complaints; no major abd pain and under control with medications; no n/v/d; no sob or cp; + flatus; - BM; minimal activity Objective: Vitals: See below Exam: GENERAL: On exam, the patient was laying in bed and appeared to be comfortable and in no acute distress. ABDOMEN: Soft, nontender and nondistended. Incision dressings are clean, dry and intact without any evidence of obvious underlying erythema, edema, discharge , or hernia. There are no peritoneal signs or guarding. SKIN: Skin appears to be pink and feels warm to touch. NEUROLOGIC: Patient is awake, alert, and follows commands appropriately. Exam/Review of Systems Vital Signs Vitals Vital Signs Date Time Temp Pulse Resp B/P Pulse Ox O2 Delivery O2 Flow Rate FiO2 09/01/16 08:12 98.4 70 16 103/66 98 09/01/16 05:11 Room Air Intake and Output 08/31/16 08/31/16 09/01/16 15:00 23:00 07:00 Intake Total 1800 ml 1270 ml 2000 ml Output Total 10 ml 800 ml Balance 1790 ml 470 ml 2000 ml Results Result Diagram: 09/01/16 0500 09/01/16 0500 MARY HERNANDEZ M.D. September 01, 2016 14:46
--- NOTE | 2016-09-02 14:30 | GILP ---
DATE OF PROCEDURE: 08/30/2016 PROCEDURE: Endoscopic retrograde cholangiopancreatography with endoscopic retrograde sphincterotomy , balloon dilatation of the ampulla of Vater and stone removal. BRIEF HISTORY AND INDICATIONS: The patient with documented choledocholithiasis on MRCP. PREMEDICATION: General anesthesia by anesthesiologist. SURGEON: Tricia Modi MD INSTRUMENT USED: Olympus side-viewing panendoscope. TECHNIQUE: After informed consent, with the patient/relatives understanding the procedure, its indic ations, potential risks and complications, including but not limited to: allergic reaction, bleeding , perforation or infection, and after all pertinent questions were answered to the patients satisfac tion, the patient/relatives signed witnessed informed consent. Following this, premedication was ad ministered slowly IV push under careful cardiovascular and respiratory monitoring with pulse oximetr y, automatic blood pressure and crosscutter. Once the sedative effect was achieved the patient was place in the prone position in the radiology special procedures suite; the side viewing panendoscope was introduced and advanced under visual control. Careful examination of the upper gastrointestina l tract, both on insertion as well as withdrawal of the instrument disclosed the following findings: ESOPHAGUS: The mucosa of the entire esophagus appears within normal limits. There is no evidence of esophagitis, varices, neoplasm or stricture. No Hiatal Hernia identified. STOMACH: Upon entrance to the stomach air was insufflated, the gastric cooper distended normally. Th e mucosa of the fundus, body and antrum of the stomach was carefully examined both head-on and on re troflexion, and shows no abnormalities. There is no evidence of gastritis, ulcers or neoplasm. PYLORUS: The pylorus appears patent and within normal limits, with no evidence of gastric outlet ob struction. DUODENUM: The duodenal mucosa was carefully examined in the duodenal bulb as well as the second por tion of the duodenum and appears unremarkable with no evidence of duodenitis, ulcer or neoplasm. AMPULLA OF VATER: The instrument was advanced to the second portion of the duodenum where the ampul la was identified, was cannulated without difficulty with documented stones, at least 2 stones in th e distal common bile duct. The ampulla is very, very small and for this reason, only a small sphinc terotomy could be performed. Once this was accomplished, a Hurricane 8 mm balloon was utilized to d ilate the ampulla and subsequent to this, balloon catheter was utilized to remove 2 stones without d ifficulty or evidence of complication. Balloon cholangiogram showed no residual stones and very rap id emptying. The instrument was withdrawn. The patient tolerated the procedure well. IMPRESSION: 1. Choledocholithiasis. 2. Post-endoscopic retrograde sphincterotomy. 3. Post 8 mm balloon dilatation of the ampulla of Vater. 4. Post-stone (2) removal. PLAN: The patient will be observed. Laparoscopic cholecystectomy as soon as possible is advisable. Dictated By: TRICIA MODI MS/REX Conf#: [id number] DID#: [id number] CC: TRICIA MODI;*End*
== END 2016-09-01 16:45 | disposition home or self-care (01) | DRG 419 ==
LOC: FTE 19:58 → MS1 08-28 01:03
PROVIDERS: ADMIT Internal Medicine; ATTEND Internal Medicine
PROC: 0FC98ZZ Extirpation of Matter from Common Bile Duct, Via Natural or Artificial Opening Endoscopic (ICD-10-PCS; 2016-08-30)
PROC: 0F7C8ZZ Dilation of Ampulla of Vater, Via Natural or Artificial Opening Endoscopic (ICD-10-PCS; 2016-08-30)
PROC: BF10YZZ Fluoroscopy of Bile Ducts using Other Contrast (ICD-10-PCS; 2016-08-30)
PROC: 0FT44ZZ Resection of Gallbladder, Percutaneous Endoscopic Approach (ICD-10-PCS; principal; 2016-08-31 07:30)
DX: K80.66 Calculus of gallbladder and bile duct with acute and chronic cholecystitis without obstruction (principal); Z87.442 Personal history of urinary calculi
CPT/HCPCS: 74181; 74330; 76705; 80048; 80053; 80076; 81003; 82962; 83690; 83735; 84100; 85025; 88304; J0295; J1100; J1170; J1200; J1650; J1885; J2250; J2270; J2405; J2710; J2765; J2795; J3010; J3480; J7042; J7999; Q9967

== ENCOUNTER 2016-09-20 10:59 | Outpatient (CLI) | payer OTHER ==
[~2016-09-20] VITALS: Ht 160 cm; Wt 77.3 kg
[~2016-09-20 10:59] MED LIST changes: -AMO500 PO; -AMOX1TAB10 PO; -IBUP-1542 PO
[2016-09-20 11:08] VITALS: Ht 160 cm; Wt 77.3 kg
[2016-09-20 11:09] VITALS: BP 105/63; PULSE 83; RESP 16
--- NOTE | 2016-09-20 16:53 | PN ---
Date/Time of Note Date/Time of Note DATE: 09/20/16 TIME: 16:45 Assessment/Plan Assessment/Plan Assessment/Plan [facility] Progress Note Date of Service: 09/20/16 Today's Impression & Plan: Overall doing well post op without major issues. No major wound problems. With above assessment, I've recommended the following for today: 1. F/u with PCP 2. F/u with us prn Thank you again for your great care of this very pleasant patient and wonderful family. If there are any questions, please feel free to call me at [phone]. TOTAL VISIT TIME: 20 minutes of which more than half was spent in [id number] discussion with the patient, possibly including family, as well as coordination of care between multiple physicians and providers. Disclaimer: Inadvertent spelling or grammatical errors are likely due to EHR/ dictation software use and do not reflect on the overall quality of patient care. Updated Clinical Summary: The patient is a very pleasant 20-year-old young lady with a few comorbidities including BMI of 30.3, presenting to the emergency department and being admitted at [facility] on 08/28/2016 with abdominal pain, possibly due to cholelithiasis versus viral gastroenteritis, s/p lap gt with finding of chronic cholecystitis and cholelithiasis. COMORBIDITIES: 1. Chronic cholecystitis with cholelithiasis and possible choledocholithiasis 2. Known history of cholelithiasis discovered during . 3. History of kidney stones. 4. G1, P1, A0 status with her child approximately 2 years old. 5. BMI of 30.3. 6. Status post ERCP 08/30/2016 at [facility] 7. S/p lap gt at [facility] 08/31/16 with findings of chronic cholecystitis and cholelithiasis. Subjective: No major events or complaints; no major abd pain and under control with medications; no n/v/d; no sob or cp; + flatus; + BM; + activity Objective: Vitals: See below Exam: GENERAL: On exam, the patient was sitting in a chair and appeared to be comfortable and in no acute distress. ABDOMEN: Soft, nontender and nondistended. Incision dressings are clean, dry and intact without any evidence of obvious underlying erythema, edema, discharge , or hernia. There are no peritoneal signs or guarding. SKIN: Skin appears to be pink and feels warm to touch. NEUROLOGIC: Patient is awake, alert, and follows commands appropriately. Exam/Review of Systems Vital Signs Vitals Vital Signs Date Time Temp Pulse Resp B/P Pulse Ox O2 Delivery O2 Flow Rate FiO2 09/20/16 11:09 98.8 83 16 105/63 96 Room Air MARY HERNANDEZ M.D. Sep 20, 2016 16:53
== END 2016-09-20 16:43 | disposition home or self-care (01) ==
LOC: HPC 10:59
PROVIDERS: ATTEND Transplant Surgery
DX: K80.10 Calculus of gallbladder with chronic cholecystitis without obstruction (principal); Z87.442 Personal history of urinary calculi
CPT/HCPCS: G0463

== ENCOUNTER 2017-02-15 11:50 | Emergency (ER) | END 2017-02-15 14:50 | disposition home or self-care (01) | DX: M25.531 Pain in right wrist (principal) | CPT/HCPCS: 73110; Z7502 ==

== ENCOUNTER 2017-07-25 16:31 | Emergency (ER) | END 2017-07-25 18:10 | disposition home or self-care (01) ==